=== PATIENT | male | born 1970 | race Caucasian/White ===

== ENCOUNTER 2017-11-19 16:25 | Emergency (ER) | payer BC ==
[~2017-11-19] VITALS: Ht 177.8 cm; Wt 204.1 kg
[2017-11-19 16:25] VITALS: BP_SYST 142
--- NOTE | 2017-11-19 16:25 | NUR ---
BROUGHT BACK TO BED #7 AND TRIAGED, REPORT GIVEN TO MARIE
--- NOTE | 2017-11-19 16:27 | NUR ---
Patient brought in with from Primary Doctor's office for hypertension and possible DVT on right leg. Patient states blood pressure was over 210 and has a bump on the right anterior leg. Patient also complaining of epigastric pain for 5 months. Denies any N/V/D. Patient states he takes a couple zantac and it goes away. Pain is 5/10 dull. No other complaints/injuries per patient or as noted. Will continue to monitor.
--- NOTE | 2017-11-19 17:24 | NUR ---
ER at bedside examining patient.
[2017-11-19 18:13] VITALS: BP_SYST 147
--- NOTE | 2017-11-19 18:13 | NUR ---
Patient given written and verbal discharge instructions and verbalizes understanding. ER MD discussed with patient the results and treatment provided. Patient in stable condition. ID arm band removed. Rx of Prilosec and [place] given. Patient educated on pain management and to follow up with PMD in 2-3 days. Pain Scale 0/10 Opportunity for questions provided and answered. Medication side effect fact sheet provided.
== END 2017-11-19 18:13 | disposition home or self-care (01) ==
LOC: SED 16:25
DX: I10 Essential (primary) hypertension (principal); R10.13 Epigastric pain; Z98.84 Bariatric surgery status
CPT/HCPCS: 93005; 99283

== ENCOUNTER 2020-05-25 07:03 | Emergency (ER) | payer BC, MEDICAID ==
[~2020-05-25] VITALS: Ht 177.8 cm; Wt 206.4 kg
[2020-05-25 07:09] VITALS: BP_SYST 129
[2020-05-25] MEDS ORDERED: KETOROLAC TROMETHAMINE 60 MG/2 ML VIAL IM ONE (08:00)
[2020-05-25 09:40] VITALS: BP_SYST 137
== END 2020-05-25 09:43 | disposition home or self-care (01) ==
LOC: SED 07:03
DX: S00.03XA Contusion of scalp, initial encounter (principal); S80.211A Abrasion, right knee, initial encounter; R03.0 Elevated blood-pressure reading, without diagnosis of hypertension; E11.9 Type 2 diabetes mellitus without complications; W06.XXXA Fall from bed, initial encounter; Y93.89 Activity, other specified; Y92.89 Other specified places as the place of occurrence of the external cause; Y99.8 Other external cause status
CPT/HCPCS: 70250; 73564; 96372; 99284; J1885

== ENCOUNTER 2021-05-24 19:07 | Inpatient (IN) | payer BC, MEDICAID, SELFPAY ==
[~2021-05-24] VITALS: Ht 177.8 cm; Wt 213.6 kg
[2021-05-24 19:35] VITALS: BP_SYST 114
--- NOTE | 2021-05-24 19:35 | NUR ---
Came in ER ambulatory from home accompanied by , PAULA, spontaneously at room air, not in distress noted. With chief complaints of Scrotal pain and swelling for 2 weeks, known with Diabetes on Metformin, Peripheral neuropathy, he fell in the floor in the restaurant yesterday, s/p gastric bypass 2006. Vital signs taken and recorded, [id number]%, O2 at 2L/min via nasal cannula administered.
--- NOTE | 2021-05-24 19:44 | NUR ---
Seen and examined by Dr. Vizcarra, ER Attending
[2021-05-24] MEDS ORDERED: FUROSEMIDE 40 MG/4 ML VIAL IVP ONE (19:45)
[2021-05-24] MEDS ORDERED: PIPERACILLIN/TAZO 4.5 GM in NS 100 ML IV ONE (19:45)
--- NOTE | 2021-05-24 20:00 | NUR ---
# 20 gauge [facility]ath [facility]. Use of asceptic technique. Opsite placed over site. Blood return noted. Blood for lab drawn from site. Flushed with 10 cc of normal saline. No evidence of infiltration noted. Patient tolerated well.
--- NOTE | 2021-05-24 20:10 | NUR ---
chest Xray at bedside done
[2021-05-24] MEDS ORDERED: PIPERACILLIN/TAZOBACTAM 4.5 GM/VIAL (ZOSYN) IV ONE (20:22)
[2021-05-24 20:30] LABS: CALCIUM 7.8 mg/dL (8.4-11.0); CREATININE 1.07 mg/dL (0.55-1.30); POTASSIUM 4.1 mmol/L (3.5-5.1)
[2021-05-24 20:31] LABS: HEMOGLOBIN 7.3 g/dL (14.0-18.0); MEAN CORPUSCULAR HEMOGLOBIN 16 pg (27-31)
[2021-05-24 20:35] LABS: ALBUMIN 3.2 g/dL (3.4-4.8); BASOPHILS # (AUTO) 0.1 K/uL (0.0-0.2); BASOPHILS % (AUTO) 1.2 % (0.0-2.0); EOSINOPHILS # (AUTO) 0.3 K/uL (0.0-0.4); EOSINOPHILS % (AUTO) 3.4 % (0.0-4.0); HEMATOCRIT 26.6 % (36-54); LYMPHOCYTES # (AUTO) 1.5 K/uL (1.0-5.5); LYMPHOCYTES % (AUTO) 17.3 % (20.5-51.5); MEAN CORPUSCULAR HGB CONC 28 % (32-36); MEAN CORPUSCULAR VOLUME 58 fL (79.0-98.0); MONOCYTES % (AUTO) 11.8 % (1.7-9.3); NEUTROPHILS # (AUTO) 5.8 K/uL (1.8-7.7); NEUTROPHILS % (AUTO) 66.3 % (40.0-70.0); PLATELET COUNT (AUTO) 195 K/uL (130-430); RED BLOOD CELL COUNT(AUTO) 4.59 MIL/uL (4.2-6.2); RED CELL DISTRIBUTION WIDTH 23.7 % (9.0-15.0); TOTAL BILIRUBIN 1.1 mg/dL (0.0-1.0); WHITE BLOOD COUNT (AUTO) 8.7 K/uL (4.8-10.8)
--- NOTE | 2021-05-24 21:02 | NUR ---
Patient will be admitted to care of Dr. Gordillo as A CASE OF ANASARCA. Admitted to TELEMETRY unit. Will go to room PENDING. Belongings list completed. Complete and up to date summary report printed. SBAR report to be given at bedside with opportunity for questions.
--- NOTE | 2021-05-24 21:05 | NUR ---
CT scan personnel Kareem contacted, according to him the maximum weight of the patient can accommodate to CT table maximum of 400lbs, apparently the patient weight 440lbs. As per Dr. Gordillo if pt cannot accommodate to Ct scan, can proceed to ULtrasound Abdomen.
[2021-05-24 21:19] LABS: AMYLASE 136 U/L (0-100); LIPASE 165 U/L (73-393)
--- NOTE | 2021-05-24 21:19 | NUR ---
To toilet ambulatory, voided small amount of urine, wasn't able to collect.
--- NOTE | 2021-05-24 21:31 | NUR ---
Patient's code status is FULL CODE, paperwork completed and placed in chart.
[2021-05-24] MEDS ORDERED: GLUXR500 PO (21:33)
--- NOTE | 2021-05-24 21:33 | NUR ---
Medication reconciliation completed with information provided by the patient. Any prior medication reconciliation on file was reviewed and corrected.
--- NOTE | 2021-05-24 23:55 | NUR ---
To bedside commode, voided freely to a clear urine 1200ml noted, sample sent to lab
--- NOTE | 2021-05-25 00:56 | NUR ---
To toilet ambulatory, voided freely as claimed
[2021-05-25 01:24] LABS: CLARITY/URINE CLEAR (CLEAR); COLOR,URINE YELLOW (YELLOW)
[2021-05-25 01:25] LABS: BILIRUBIN,URINE NEGATIVE (NEGATIVE); BLOOD, URINE NEGATIVE (NEGATIVE); GLUCOSE,URINE NEGATIVE (NEGATIVE); KETONES,URINE NEGATIVE (NEGATIVE); LEUKOCYTE ESTERASE ,URINE NEGATIVE (NEGATIVE); NITRITE, URINE NEGATIVE (NEGATIVE); PROTEIN URINE NEGATIVE (NEGATIVE); UROBILINOGEN,URINE 0.2 (0.2-1.0)
--- NOTE | 2021-05-25 02:54 | NUR ---
Awake, not in distress noted
--- NOTE | 2021-05-25 05:13 | NUR ---
Ambulatory to toilet, voided freely as claimed
--- NOTE | 2021-05-25 07:10 | NUR ---
Endorsed to day shift RN in stable condition for continuity of care.
--- NOTE | 2021-05-25 07:41 | NUR ---
REPORT RECEIVED, PT O2 SAT 86-95%, ON 02-3L VIA NC, TOLERATING WELL. PT ADMITS TO USING CPAP AT HOME, BUT NOT USING FOR THE LAST MONTH. IN NAD, RESP EVEN AND UNLABORED, LS-CLEAR RAUL, DIMINISHED AT BASES. DENIES ANY SOB OR CP. SKIN W/D/I, PT MORBIDLY OBESE, DENIES ANY ABD PAIN, N,V,D, AFEBRILE. BEDSIDE COMMODE,URINAL IN ROOM, BUT REFUSES, STATES HE PREFERS TO WALK TO BATHROOM. SAFETY MEASURES IN PLACE. WAITING FOR ADMISSION BED.
--- NOTE | 2021-05-25 08:23 | NUR ---
BREAKFAST TRAY OFFERED, EATING WELL.
[2021-05-25 08:41] LABS: ALBUMIN 2.8 g/dL (3.4-4.8); CALCIUM 7.7 mg/dL (8.4-11.0); CREATININE 0.91 mg/dL (0.55-1.30); POTASSIUM 3.8 mmol/L (3.5-5.1); TOTAL BILIRUBIN 1.4 mg/dL (0.0-1.0)
[2021-05-25 08:42] LABS: RED BLOOD CELL COUNT(AUTO) 4.36 MIL/uL (4.2-6.2); WHITE BLOOD COUNT (AUTO) 8.4 K/uL (4.8-10.8)
[2021-05-25 08:44] LABS: EOSINOPHILS # (AUTO) 0.4 K/uL (0.0-0.4); EOSINOPHILS % (AUTO) 4.8 % (0.0-4.0); HEMATOCRIT 25.2 % (36-54); LYMPHOCYTES # (AUTO) 1.4 K/uL (1.0-5.5); MEAN CORPUSCULAR HEMOGLOBIN 16 pg (27-31); MEAN CORPUSCULAR HGB CONC 28 % (32-36); MEAN CORPUSCULAR VOLUME 58 fL (79.0-98.0); MONOCYTES # (AUTO) 0.7 K/uL (0.0-1.0); NEUTROPHILS # (AUTO) 5.9 K/uL (1.8-7.7); NEUTROPHILS % (AUTO) 70.2 % (40.0-70.0); PLATELET COUNT (AUTO) 195 K/uL (130-430); RED CELL DISTRIBUTION WIDTH 23.5 % (9.0-15.0)
[2021-05-25 08:45] LABS: BASOPHILS # (AUTO) 0.1 K/uL (0.0-0.2)
--- NOTE | 2021-05-25 09:11 | NUR ---
DR NEW CALLED BACK AND I INFORMED HER ABOUT PT'S LAB TESTS HGB 7.0/HCT 25.2, PT ALSO RPEORTS RT RIB AREA PAIN S/P FALL YESTERDAY. REQUESTING PAIN MEDICATION, ORDERS RECEIVED. SHUKRI SANCHEZ MADE AWARE.
--- NOTE | 2021-05-25 10:49 | NUR ---
PT SITTING UP IN BED, IN NAD. RESP EVEN AND UNLABORED, DENIES ANY SOB OR CP. REPORTS RT RIB PAIN S/P FALLING TWO DAYS AGO,. PHARMACY WAS CALLED AND THEY ARE ENTERING ADMISSION ORDER. PT ASSISTED BACK TO BED ,PLACED ON 02-3L VIA NC FOR COMFORT AND SLEEPING. VSS.
--- NOTE | 2021-05-25 11:55 | NUR ---
PT 02 SATS AT 84-86%, PT WITH EYES CLOSED, IN DEEP SLEEP. PT AROUSBALE TO VOICE, INSTRUCTED TO TAKE DEEP BREATHS. O2-SATS INCREASED TO 97% ON 02-3L VIA NC.
--- NOTE | 2021-05-25 13:11 | NUR ---
DR BERTRAND IN ROOM FOR EXAM, NO NEW VERBAL ORDERS RECEIVED.
--- NOTE | 2021-05-25 14:01 | NUR ---
NOTED THAT WHEN PT SLEEPS, HIS O2 SAT DECREASE TO 80'S, CONSTANTLY REMIDING PT TO TAKE DEEP BREATHS. STATES, "PLEASE LET ME SLEEP, IM TIRED". HE REFUSES CPAP, DR ELZA BENSON, ORDER FOR LEAK PATCHER CONSULT, RT CALLED. SHUKRI SANCHEZ NOTIFIED.
--- NOTE | 2021-05-25 14:08 | NUR ---
DR SAN CALLED AND I INFORMD HER PF PT'S LOW 02 SATS 70-90% WHEN SLEEPING. STATES SHE WILLCOME TO SEE PT.
--- NOTE | 2021-05-25 14:34 | NUR ---
RT AT BEDSIDE, APPLIED BIPAP 12/6, RATE 10, 30% TOLERATING WELL.
--- NOTE | 2021-05-25 15:00 | NUR ---
Patient will be admitted to care of . Admitted to MS unit. Will go to room 116B. Belongings list completed. Complete and up to date summary report printed. SBAR report to be given at bedside with opportunity for questions.
--- NOTE | 2021-05-25 15:32 | NUR ---
CONSULTATION PAGED REASON FOR CONSULTATION:SCROTAL PAIN WAS CONSULT CALLED?Y PERSON WHO WAS NOTIFIED:ELIANA ALEXANDER CONSULTING PHYSICIAN:ELIANA ALEXANDER PROFESSOR OF APOLOGETICS SPECIALTY:UROLOGY PROFESSOR OF APOLOGETICS PHONE NUMBER:[phone] REQUESTING PHYSICIAN:GEE DOVE
--- NOTE | 2021-05-25 15:36 | NUR ---
CONSULTATION PAGED REASON FOR CONSULTATION:DESAT WAS CONSULT CALLED?Y PERSON WHO WAS NOTIFIED:JOSE CONSULTING PHYSICIAN: EVENT MARKETING MANAGER SPECIALTY:PULMONARY EVENT MARKETING MANAGER PHONE NUMBER:[phone] REQUESTING PHYSICIAN:GEE DOVE
[2021-05-25 15:39] VITALS: BP_SYST 130
[2021-05-25] MEDS ORDERED: INSULIN LISPRO SLIDING SCALE 100 UNITS/ML VIAL (humaLOG) SUBCUT PRN (15:45)
[2021-05-25] MEDS ORDERED: GLUCOSE (DEXTROSE) ORAL GEL -Adults PO PRN (15:45)
--- NOTE | 2021-05-25 16:11 | NUR ---
CONSULTATION PAGED REASON FOR CONSULTATION:TRANSAMINITIS,ANASARCA WAS CONSULT CALLED?Y PERSON WHO WAS NOTIFIED:CHAPITO CONSULTING PHYSICIAN:FERMIN TROY PETROLEUM REFINERY OPERATOR SPECIALTY:GI PETROLEUM REFINERY OPERATOR PHONE NUMBER:[phone] REQUESTING PHYSICIAN:GEE DOVE
[2021-05-25] MEDS: PIPERACILLIN/TAZO 3.375/DEX-IS 50 ML IV SCH ×2 (19:12→23:56)
[2021-05-25 20:00] VITALS: BP_SYST 117
[2021-05-25] MEDS: GABAPENTIN 100 MG CAPSULE PO SCH (20:26)
[2021-05-25] MEDS: MORPHINE 2 MG/ML INJ. SYRINGE IVP PRN (20:28)
--- NOTE | 2021-05-25 21:42 | NUR ---
OOB, RESTROOM Patient is unable to use urinal for void and unable to use BSC, he insisted on walking to restroom. Ambulated w/FWW and assist. Voided and returned to bed, sitting at bedside w/ legs dangle a few minutes, then returned to side posture.
[2021-05-26 00:40] VITALS: BP_SYST 137
[2021-05-26] MEDS: PIPERACILLIN/TAZO 3.375/DEX-IS 50 ML IV SCH ×3 (05:55→17:31)
[2021-05-26] MEDS: MORPHINE 2 MG/ML INJ. SYRINGE IVP PRN (07:09)
--- NOTE | 2021-05-26 07:40 | NUR ---
OPENING NOTES: RECEIVED REPORT FROM PIN OR CLIP FASTENER NURSE. PATIENT IS AWAKE LAYING DOWN IN BED. TOLERATED OXYGEN ON ROOM AIR WITH NO DISTRESS NOTED. IV LINE PATENT AND INTACT WITH NO INFILTRATION NOTED. PATIENT STABLE AT THIS TIME. SAFETY,FALL, AND ASPIRATION PRECAUTIONS ARE IN PLACE. BED LOCKED IN LOWEST POSITION AND CALL LIGHT IN REACH. WILL CONTINUE TO MONITOR FOR ANY CHANGES.
[2021-05-26 07:54] LABS: BASOPHILS # (AUTO) 0.1 K/uL (0.0-0.2); BASOPHILS % (AUTO) 1.1 % (0.0-2.0); EOSINOPHILS # (AUTO) 0.4 K/uL (0.0-0.4); EOSINOPHILS % (AUTO) 4.2 % (0.0-4.0); HEMATOCRIT 25.8 % (36-54); HEMOGLOBIN 7.1 g/dL (14.0-18.0); LYMPHOCYTES # (AUTO) 1.5 K/uL (1.0-5.5); MEAN CORPUSCULAR HEMOGLOBIN 16 pg (27-31); MEAN CORPUSCULAR HGB CONC 27 % (32-36); MEAN CORPUSCULAR VOLUME 58 fL (79.0-98.0); MONOCYTES # (AUTO) 0.9 K/uL (0.0-1.0); MONOCYTES % (AUTO) 9.5 % (1.7-9.3); NEUTROPHILS # (AUTO) 6.2 K/uL (1.8-7.7); NEUTROPHILS % (AUTO) 68.2 % (40.0-70.0); PLATELET COUNT (AUTO) 220 K/uL (130-430); RED BLOOD CELL COUNT(AUTO) 4.44 MIL/uL (4.2-6.2); RED CELL DISTRIBUTION WIDTH 23.7 % (9.0-15.0)
[2021-05-26 08:00] VITALS: BP_SYST 137
[2021-05-26] MEDS: GABAPENTIN 100 MG CAPSULE PO SCH ×2 (08:37→21:26)
[2021-05-26] MEDS: FUROSEMIDE 40 MG/4 ML VIAL IVP SCH ×2 (08:38→21:27)
[2021-05-26] MEDS: ENOXAPARIN SODIUM 60 MG/0.6 ML SYRINGE SUBCUT SCH ×2 (08:39→21:32)
[2021-05-26 08:48] LABS: CALCIUM 7.8 mg/dL (8.4-11.0); CREATININE 1.07 mg/dL (0.55-1.30); POTASSIUM 3.8 mmol/L (3.5-5.1)
--- NOTE | 2021-05-26 10:44 | NUR ---
CONSULT CARDIOLOGY CHF DR SMITH [phone] DR SMITH IS ROUNDING INFORMED OF CONSULT BY CHARGE NURSE PAULA
[2021-05-26 12:00] VITALS: BP_SYST 134
[2021-05-26 12:06] LABS: HEPATITIS A AB, IgM Negative (Negative); HEPATITIS B CORE AB, IgM Negative (Negative); HEPATITIS B SURFACE AG Negative (Negative)
[2021-05-26 12:24] LABS: TOTAL IRON BIND. CAPACITY 418 ug/dL (250-450)
--- NOTE | 2021-05-26 14:50 | NUR ---
PATIENT IS BLOWING BRIGHT RED BLOOD COMING FROM HIS NOSE. (DR. WILCOX) IS AWARE AND WENT TO CHECK ON PATIENT. WITH ORDER TO JUST CONTINUE MONITOR AND DO AEROSOLIZE OXYGEN ON BIPAP TONIGHT.
[2021-05-26 16:00] VITALS: BP_SYST 136
--- NOTE | 2021-05-26 18:20 | NUR ---
PATIENT HEART RATE IS 132 MANUALLY. CALLED AND SPOKE TO DR. SMITH WITH ORDERS TO PUT PATIENT ON TELE MONITOR.
--- NOTE | 2021-05-26 18:40 | NUR ---
CLOSING NOTES: PATIENT IS AWAKE LAYING DOWN IN BED. TOLERATED OXYGEN ON ROOM AIR WITH NO DISTRESS NOTED. IV LINE PATENT AND INTACT WITH NO INFILTRATION NOTED. PATIENT STABLE AT THIS TIME. SAFETY,FALL, AND ASPIRATION PRECAUTIONS REMAINED IN PLACE. BED LOCKED IN LOWEST POSITION AND CALL LIGHT IN REACH. WILL ENDORSE PATIENT CARE TO ONCOMING CLAIMS ADJUSTOR NURSE.
[2021-05-26] MEDS ORDERED: POTASSIUM CHLORIDE 20 MEQ TAB.PRT.SR PO ONE (19:30)
[2021-05-26] MEDS ORDERED: METOPROLOL TARTRATE 5 MG/5 ML AMPUL IVP ONE (19:30)
[2021-05-26] MEDS ORDERED: AMIODARONE HCL 200 MG TABLET PO ONE (19:30)
--- NOTE | 2021-05-26 19:30 | NUR ---
HIGH ALERT NOTE: Called Dr. Toney back at [phone] identified within the medical roster to verify physician authenticity. (regarding Lopressor IVP one time dose)
[2021-05-26 19:46] VITALS: BP_SYST 118
--- NOTE | 2021-05-26 19:50 | NUR ---
meds: Lopressor IVP, and two PO meds: Amiodorone & K-dur, given as ordered, BP 118/79, HR 200. wctm
--- NOTE | 2021-05-26 19:57 | NUR ---
OOB restroom ambulated to restroom and returned to bed
--- NOTE | 2021-05-26 21:06 | NUR ---
Dr. Mendoza s/w Dr. Mendoza and informed patient would like to transfer to another hospital, [facility]. I asked for DCP transfer order and she asked if casework specialist here, replied no. She said will not give order, no need d/t no casework specialist to work on transfer. She added that she s/w with patient today. Also informed her patient is requesting cough medicine, received orders for Robitussin DM 10ml Q6Hp cough; TORB
[2021-05-26] MEDS ORDERED: guaiFENesin/DEXTROMETHORPHAN 118 ML PO PRN (21:15)
--- NOTE | 2021-05-26 21:42 | NUR ---
meds scheduled meds given
[2021-05-27] MEDS: PIPERACILLIN/TAZO 3.375/DEX-IS 50 ML IV SCH ×5 (00:03→22:16)
[2021-05-27 00:10] VITALS: BP_SYST 120
--- NOTE | 2021-05-27 06:39 | NUR ---
Nutrition Update Werner Scale 16 noted. Pt admitted for Anasarca Diet: [facility] BMI: 63.1 kg/m2 RD to follow per nutrition care standards.
--- NOTE | 2021-05-27 08:00 | NUR ---
OPENING NOTES ALERT AND ORIENTED. ON 2 LITERS OF OXYGEN SUPPORT VIA NASAL CANNULA. DENIES ANY PAIN. REDNESS NOTED AROUND IV SITE BUT PATIENT REFUSED TO CHANGE SITES BECAUSE IV IS STILL WORKING. AMBULATORY, USES WALKER. FALL AND SAFETY CHECKS DONE. CALL LIGHT WITHIN REACH. WILL MONITOR.
[2021-05-27] MEDS ORDERED: guaiFENesin/DEXTROMETHORPHAN 10 ML UDC PO PRN (08:15)
[2021-05-27 08:38] VITALS: BP_SYST 112
[2021-05-27] MEDS: FUROSEMIDE 40 MG/4 ML VIAL IVP SCH (08:58)
[2021-05-27] MEDS: GABAPENTIN 100 MG CAPSULE PO SCH ×2 (08:58→20:42)
[2021-05-27] MEDS: ENOXAPARIN SODIUM 60 MG/0.6 ML SYRINGE SUBCUT SCH (08:59)
[2021-05-27] MEDS ORDERED: METOPROLOL SUCCINATE 50 MG TAB.SR.24H (TOPROL XL) PO ONE (11:00)
[2021-05-27 11:13] LABS: ALBUMIN 3.2 g/dL (3.4-4.8); CALCIUM 7.9 mg/dL (8.4-11.0); CREATININE 1.31 mg/dL (0.55-1.30); POTASSIUM 3.6 mmol/L (3.5-5.1); TOTAL BILIRUBIN 1.5 mg/dL (0.0-1.0)
[2021-05-27] MEDS: CLOTRIMAZOLE 1% TOPICAL CREAM 15 GM TP SCH ×2 (11:23→20:42)
--- NOTE | 2021-05-27 11:34 | NUR ---
Dietitian Recommendations *Recommend: [facility] Cardiac diet. *Recommend: Weight loss and lifestyle change. *Provide education prior to discharge. Please see Nutritional Assessment for details. SEUN MORRIS
[2021-05-27 11:56] LABS: HEMOGLOBIN A1C 6.1 % (4.8-5.6)
[2021-05-27 12:04] VITALS: BP_SYST 133
[2021-05-27] MEDS: SOD FERRIC GLUC COMPLEX/SUC 125 MG in NS 100 ML IV SCH (12:39)
[2021-05-27 12:41] LABS: TOTAL IRON BIND. CAPACITY 471 ug/dL (250-450)
[2021-05-27 16:10] VITALS: BP_SYST 125
[2021-05-27 16:24] LABS: EOSINOPHILS # (AUTO) 0.2 K/uL (0.0-0.4); HEMOGLOBIN 7.5 g/dL (14.0-18.0); MEAN CORPUSCULAR HEMOGLOBIN 16 pg (27-31); MEAN CORPUSCULAR HGB CONC 28 % (32-36)
[2021-05-27 16:31] LABS: BASOPHILS # (AUTO) 0.1 K/uL (0.0-0.2); BASOPHILS % (AUTO) 1.5 % (0.0-2.0); EOSINOPHILS % (AUTO) 2.5 % (0.0-4.0); HEMATOCRIT 27.4 % (36-54); LYMPHOCYTES # (AUTO) 1.5 K/uL (1.0-5.5); LYMPHOCYTES % (AUTO) 16.6 % (20.5-51.5); MEAN CORPUSCULAR VOLUME 58 fL (79.0-98.0); MONOCYTES % (AUTO) 11.2 % (1.7-9.3); NEUTROPHILS # (AUTO) 6.1 K/uL (1.8-7.7); NEUTROPHILS % (AUTO) 68.2 % (40.0-70.0); PLATELET COUNT (AUTO) 284 K/uL (130-430); RED BLOOD CELL COUNT(AUTO) 4.74 MIL/uL (4.2-6.2); RED CELL DISTRIBUTION WIDTH 23.8 % (9.0-15.0)
--- NOTE | 2021-05-27 18:55 | NUR ---
CLOSING NOTES RESTING. NO COMPLAINS. ALL NEEDS MET. WILL ENDORSE TO NIGHT NURSE.
--- NOTE | 2021-05-27 19:40 | NUR ---
OPENING NOTE RECEIVED REPORT FROM DAY RN. PATIENT LAYING IN BED WITH RESPIRATIONS EVEN AND UNLABORED ON RA. PT HAS NC AT BEDSIDE AND STATES HE WILL WEAR IT WHEN HE FEELS SOB. AT BEDSIDE. PT HELPED UP TO SITTING POSITION. THEN UP WITH WALKER TO RESTROOM. PT AMBULATORY WITH STEADY GAIT. PT VOIDED ONLY. PT ALSO USES PERSONAL CANE TO HELP TO STANDING POSITION. EDUCATED PT ON PLAN OF CARE. PT SCROTUM ENLARGED. PT SELF TURNS IN BED. SKIN INTACT. BED IN LOWEST AND LOCKED POSITION. RFA 20G IV INTACT AND PATENT. SALINE LOCKED. FLUSHES WELL. REDNESS NOTED AROUND IV SITE. PT DENIES PAIN. MAY HAVE ALLERGIC RXN TO TAPE. WILL CHANGE OUT DRESSING. NO SWELLING NOTED. CALL LIGHT WITHIN REACH. SAFETY/FALL PRECAUTIONS IN PLACE. WILL CONTINUE TO MONITOR.
[2021-05-27 20:00] VITALS: BP_SYST 94
--- NOTE | 2021-05-27 21:03 | NUR ---
GLUCOMETER CHECK BLOOD GLUCOSE 134. NO INSULIN COVERAGE NEEDED PER SLIDING SCALE. WILL CONTINUE TO MONITOR.
[2021-05-27] MEDS: MORPHINE 2 MG/ML INJ. SYRINGE IVP PRN (22:17)
[2021-05-28] VITALS: BP_SYST 121
--- NOTE | 2021-05-28 00:57 | NUR ---
CONSULTATION PAGED/CALLED Reason for Consultation: MACROCYTIC ANEMIA Person Who was Notified: DOCTOR PUSHPA EUGENE SAW PT Consulting Physician: Finance Attorney Specialty: Ordering Physician: BRENDEN
--- NOTE | 2021-05-28 04:31 | NUR ---
PAIN MEDICATION PT REQUESTS PRN PAIN MEDICATION FOR SCROTUM PAIN. PRN MEDICATION ADMINISTERED PER ORDER.
[2021-05-28] MEDS: MORPHINE 2 MG/ML INJ. SYRINGE IVP PRN (04:45)
[2021-05-28] MEDS: PIPERACILLIN/TAZO 3.375/DEX-IS 50 ML IV SCH ×3 (05:53→17:35)
--- NOTE | 2021-05-28 07:01 | NUR ---
CLOSING NOTE PATIENT AWAKE IN BED WITH RESPIRATIONS EVEN AND UNLABORED ON 2L O2 VIA NC. NO SIGNS OF DISTRESS NOTED. RFA IV PATENT AND INTACT. FLUSHES WELL. PT CURRENTLY DENIES PAIN. BED IN LOWEST AND LOCKED POSITION. CALL LIGHT WITHIN REACH. SAFETY/FALL PRECAUTIONS IN PLACE. WILL ENDORSE TO DAY RN.
[2021-05-28 07:04] LABS: BASOPHILS # (AUTO) 0.1 K/uL (0.0-0.2); BASOPHILS % (AUTO) 1.1 % (0.0-2.0); EOSINOPHILS # (AUTO) 0.5 K/uL (0.0-0.4); EOSINOPHILS % (AUTO) 5.5 % (0.0-4.0); HEMOGLOBIN 7.3 g/dL (14.0-18.0); LYMPHOCYTES # (AUTO) 1.8 K/uL (1.0-5.5); LYMPHOCYTES % (AUTO) 19.2 % (20.5-51.5); MEAN CORPUSCULAR HEMOGLOBIN 16 pg (27-31); MEAN CORPUSCULAR HGB CONC 27 % (32-36); MEAN CORPUSCULAR VOLUME 59 fL (79.0-98.0); MONOCYTES # (AUTO) 0.9 K/uL (0.0-1.0); MONOCYTES % (AUTO) 9.5 % (1.7-9.3); NEUTROPHILS # (AUTO) 6.2 K/uL (1.8-7.7); PLATELET COUNT (AUTO) 288 K/uL (130-430); RED CELL DISTRIBUTION WIDTH 23.8 % (9.0-15.0); WHITE BLOOD COUNT (AUTO) 9.6 K/uL (4.8-10.8)
[2021-05-28 07:29] LABS: ALANINE AMINOTRANSFERASE 100 U/L (12-78); ALBUMIN 3.1 g/dL (3.4-4.8); ASPARTATE AMINOTRANSFERASE 51 U/L (10-37); CALCIUM 7.9 mg/dL (8.4-11.0); CHLORIDE 98 mmol/L (98-107); CREATININE 1.15 mg/dL (0.55-1.30); GLUCOSE 108 mg/dL (70-99); PHOSPHORUS 3.8 mg/dL (2.7-4.5); POTASSIUM 3.5 mmol/L (3.5-5.1); SODIUM SERUM 140 mmol/L (136-145); UREA NITROGEN, BLOOD 17 mg/dL (8-21)
[2021-05-28 07:39] LABS: ANION GAP < 3 (5-15); GFR AFRICAN AMERICAN 86 mL/min (>90)
[2021-05-28 08:01] VITALS: BP_SYST 111
--- NOTE | 2021-05-28 08:02 | NUR ---
OPENING NOTES ALERT AND ORIENTED. NO SHORTNESS OF BREATH ON 2 LITERS OF OXYGEN VIA NASAL CANNULA. PAIN IS CONTROLLED AT THIS TIME. REPORTED THAT HE DID NOT SLEEP WELL BECAUSE THE CPAP WAS UNCOMFORTABLE. WANTS TO BE TRANSFERRED SOON POSSIBLE. EXPLAINED PLAN OF CARE, VERBALIZED UNDERSTANDING. FALL AND SAFETY CHECKS DONE. CALL LIGHT WITHIN REACH. WILL MONITOR.
[2021-05-28 08:15] LABS: NEUTROPHILS % (AUTO) 64.7 % (40.0-70.0)
[2021-05-28] MEDS ORDERED: FUROSEMIDE 40 MG/4 ML VIAL IVP ONE (09:00)
[2021-05-28] MEDS ORDERED: METOPROLOL SUCCINATE 50 MG TAB.SR.24H (TOPROL XL) PO SCH (09:00)
[2021-05-28] MEDS ORDERED: ENOXAPARIN SODIUM 60 MG/0.6 ML SYRINGE SUBCUT SCH (09:00)
--- NOTE | 2021-05-28 09:15 | NUR ---
IV INFILTRATED IV ON RIGHT FOREARM WAS INFILTRATED. WAS ABLE TO RE-INSERT NEW IV ON LEFT FOREARM. LASIX ADMINISTERED.
[2021-05-28] MEDS: GABAPENTIN 100 MG CAPSULE PO SCH (09:31)
[2021-05-28] MEDS: CLOTRIMAZOLE 1% TOPICAL CREAM 15 GM TP SCH (09:31)
[2021-05-28 10:18] VITALS: BP_SYST 111
--- NOTE | 2021-05-28 11:40 | NUR ---
IV INFILTRATED IV WAS INFILTRATED GAIN ON THE LEFT FOREARM. MS. FERNANDA RN WAS ABLE TO RE-INSERT AN IV LINE ON THE LEFT FOREARM. ANTIBIOTIC IV ADMINISTERED.
[2021-05-28 12:40] VITALS: BP_SYST 114
[2021-05-28] MEDS: SOD FERRIC GLUC COMPLEX/SUC 125 MG in NS 100 ML IV SCH (13:16)
--- NOTE | 2021-05-28 15:42 | NUR ---
Spoke w/ patient and his . They want [facility] for transfer. I spoke to [facility]-they are not accepting transfers due to Saturation. I notified the patient and his . I [place] [facility] accommodate the patient's size for CT Scan, his abdominal girth is 74 cm-they can accommodate to 73 cm. I spoke to at [facility], they sent a referral to [facility]-they can only accommodate 350 lbs- the patient weight is 440 lbs. I sent a referral to [facility] and I am waiting for a response.
[2021-05-28 16:57] VITALS: BP_SYST 119
[2021-05-28] MEDS ORDERED: FUROSEMIDE 40 MG/4 ML VIAL IVP SCH (17:00)
--- NOTE | 2021-05-28 17:07 | NUR ---
ROUNDS PATIENT WANTED TO SHOWER. EXPLAINED TO PATIENT THAT HE IS ON CONTINUOUS CARDIAC MONITORING AND THAT HE CANNOT SHOWER AT THIS TIME. PROVIDED WITH TOILETRIES. NURSE AND NATURAL GAS TRADER OFFERED ASSISTANCE BUT PATIENT REFUSED. SAFETY CHECKS DONE.
--- NOTE | 2021-05-28 20:00 | NUR ---
AMA: Patient does not wish to proceed with medical care recommended by Dr. Mendoza. Patient given information related to possible complications, up to and including , which could occur as a result of leaving hospital at this time. Patient verbalizes understanding of risks involved leaving against medical advice. Patient has signed AMA form.
[2021-05-29 09:07] LABS: HEPATITIS A AB, IgM Negative (Negative); HEPATITIS B CORE AB, IgM Negative (Negative); HEPATITIS B SURFACE AG Negative (Negative)
[2021-05-29 10:07] LABS: ANTI NUCLEAR AB WITH REFLEX Negative (Negative)
[2021-05-29] MEDS ORDERED: NEU100 PO (11:17)
[2021-05-29] MEDS ORDERED: DICL50TA9 PO (11:17)
[2021-05-30 00:06] LABS: FOLATE (FOLIC ACID) >20.0 ng/mL (>3.0)
== END 2021-05-28 19:15 | disposition left against medical advice (07) | DRG 727 ==
LOC: SED 19:07 → STU 20:54 → SMU 05-25 12:19 → STU 05-26 19:16
PROVIDERS: ADMIT Family Medicine; ATTEND Family Medicine
PROC: 5A09357 Assistance with Respiratory Ventilation, Less than 24 Consecutive Hours, Continuous Positive Airway Pressure (ICD-10-PCS; principal; 2021-05-28)
DX: N45.2 Orchitis (principal); J96.21 Acute and chronic respiratory failure with hypoxia; K90.9 Intestinal malabsorption, unspecified; Z68.44 Body mass index [BMI] 60.0-69.9, adult; I47.1 Supraventricular tachycardia; D50.9 Iron deficiency anemia, unspecified; E66.01 Morbid (severe) obesity due to excess calories; J44.9 Chronic obstructive pulmonary disease, unspecified; E11.40 Type 2 diabetes mellitus with diabetic neuropathy, unspecified; G47.33 Obstructive sleep apnea (adult) (pediatric); I50.9 Heart failure, unspecified; Z20.822 Contact with and (suspected) exposure to COVID-19; Z53.29 Procedure and treatment not carried out because of patient's decision for other reasons; R74.01 Elevation of levels of liver transaminase levels; K76.0 Fatty (change of) liver, not elsewhere classified; Z98.84 Bariatric surgery status; Z91.19 Patient's noncompliance with other medical treatment and regimen
CPT/HCPCS: 36415; 71045; 76700-TC; 76870-TC; 80048; 80053; 80061; 80074; 81003; 82103; 82140; 82150; 82272; 82607; 82728; 82746; 82962; 83010; 83036; 83540; 83550; 83605; 83690; 83735; 83880; 84100; 85025; 85044; 86038; 86886; 86900; 86901; 87040-TC; 93005; 93306; 93970; 94660; 94760; 96365; 96375; 99291; G0378; J1650; J1940; J2270; J2543; J2916; J3490

== ENCOUNTER 2021-05-28 22:19 | Inpatient (IN) | payer BC, MEDICAID, SELFPAY ==
[~2021-05-28] VITALS: Ht 177.8 cm; Wt 192.0 kg
[2021-05-28 19:30] VITALS: BP_SYST 115
[2021-05-28 22:19] VITALS: BP_SYST 126
[~2021-05-28 22:19] MED LIST: GLUXR500 PO
[2021-05-29] MEDS ORDERED: FUROSEMIDE 40 MG/4 ML VIAL IVP ONE (00:45)
[2021-05-29 01:39] LABS: BILIRUBIN,URINE NEGATIVE (NEGATIVE); BLOOD, URINE NEGATIVE (NEGATIVE); CLARITY/URINE CLEAR (CLEAR); COLOR,URINE YELLOW (YELLOW); GLUCOSE,URINE NEGATIVE (NEGATIVE); KETONES,URINE NEGATIVE (NEGATIVE); LEUKOCYTE ESTERASE ,URINE NEGATIVE (NEGATIVE); NITRITE, URINE NEGATIVE (NEGATIVE); PH,URINE 7.5 (5.0-8.0); PROTEIN URINE NEGATIVE (NEGATIVE)
[2021-05-29 01:41] LABS: ALBUMIN 3.6 g/dL (3.4-4.8); CALCIUM 8.3 mg/dL (8.4-11.0); CREATININE 1.11 mg/dL (0.55-1.30); POTASSIUM 3.7 mmol/L (3.5-5.1); TOTAL BILIRUBIN 1.5 mg/dL (0.0-1.0)
[2021-05-29 01:42] LABS: BASOPHILS # (AUTO) 0.1 K/uL (0.0-0.2); BASOPHILS % (AUTO) 0.9 % (0.0-2.0); EOSINOPHILS # (AUTO) 0.4 K/uL (0.0-0.4); EOSINOPHILS % (AUTO) 3.4 % (0.0-4.0); HEMATOCRIT 29.3 % (36-54); HEMOGLOBIN 7.8 g/dL (14.0-18.0); LYMPHOCYTES # (AUTO) 2.6 K/uL (1.0-5.5); LYMPHOCYTES % (AUTO) 21.6 % (20.5-51.5); MEAN CORPUSCULAR HEMOGLOBIN 16 pg (27-31); MEAN CORPUSCULAR HGB CONC 27 % (32-36); MEAN CORPUSCULAR VOLUME 59 fL (79.0-98.0); MONOCYTES # (AUTO) 0.8 K/uL (0.0-1.0); MONOCYTES % (AUTO) 6.9 % (1.7-9.3); NEUTROPHILS # (AUTO) 8.2 K/uL (1.8-7.7); NEUTROPHILS % (AUTO) 67.2 % (40.0-70.0); PLATELET COUNT (AUTO) 353 K/uL (130-430); RED CELL DISTRIBUTION WIDTH 23.9 % (9.0-15.0); WHITE BLOOD COUNT (AUTO) 12.2 K/uL (4.8-10.8)
[2021-05-29 08:00] VITALS: BP_SYST 92
[2021-05-29 09:43] VITALS: BP_SYST 119
[2021-05-29] MEDS: FUROSEMIDE 20 MG/2 ML VIAL IVP SCH ×3 (09:43→20:56)
[2021-05-29] MEDS ORDERED: DICL50TA9 PO (11:17)
[2021-05-29] MEDS ORDERED: NEU100 PO (11:17)
[2021-05-29] MEDS ORDERED: DEXTROSE 50% JECT 50 ML DISP.SYRIN IVP PRN (11:45)
[2021-05-29 16:17] VITALS: BP_SYST 116
[2021-05-29 19:30] VITALS: BP_SYST 115
[2021-05-29] MEDS ORDERED: guaiFENesin/DEXTROMETHORPHAN 10 ML UDC PO PRN (23:00)
[2021-05-30] VITALS: BP_SYST 110
[2021-05-30] MEDS: guaiFENesin/DEXTROMETHORPHAN 10 ML UDC PO PRN ×2 (00:12→10:17)
[2021-05-30 08:16] VITALS: BP_SYST 131
[2021-05-30] MEDS: POLYETHYLENE GLYCOL 3350, 17 GM/ POWD.PACK PO SCH (08:21)
[2021-05-30] MEDS: FUROSEMIDE 20 MG/2 ML VIAL IVP SCH ×3 (08:21→21:00)
[2021-05-30] MEDS: PIPERACILLIN/TAZO 3.375/DEX-IS 50 ML IV SCH ×2 (08:22→13:37)
[2021-05-30] MEDS: SOD FERRIC GLUC COMPLEX/SUC 125 MG in NS 100 ML IV SCH (09:08)
[2021-05-30] MEDS ORDERED: VANCOMYCIN HCL 1,750 MG in NS 500 ML IV SCH (10:00)
[2021-05-30 12:40] VITALS: BP_SYST 144
[2021-05-30] MEDS: [UNRECOGNIZED DRUG - OTHER] IV SCH (17:05)
[2021-05-30 17:37] VITALS: BP_SYST 128
[2021-05-30 19:30] VITALS: BP_SYST 105
[2021-05-30] MEDS: LINEZOLID 300 ML IV SCH (22:09)
[2021-05-30] MEDS: INSULIN REGULAR, HUMAN 100 UNITS/ML, 10 ML VIAL (humuLIN R) SUBCUT PRN (22:24)
[2021-05-31] MEDS: [UNRECOGNIZED DRUG - OTHER] IV SCH ×5 (00:55→23:45)
[2021-05-31 01:07] VITALS: BP_SYST 121
[2021-05-31 08:00] VITALS: BP_SYST 110
[2021-05-31] MEDS: SOD FERRIC GLUC COMPLEX/SUC 125 MG in NS 100 ML IV SCH (09:02)
[2021-05-31] MEDS: LINEZOLID 300 ML IV SCH ×2 (09:02→22:15)
[2021-05-31] MEDS: FUROSEMIDE 20 MG/2 ML VIAL IVP SCH ×3 (09:06→20:43)
[2021-05-31] MEDS: POLYETHYLENE GLYCOL 3350, 17 GM/ POWD.PACK PO SCH (09:06)
[2021-05-31] MEDS: FLUCONAZOLE 200 MG TABLET (DIFLUCAN) PO SCH (09:06)
[2021-05-31 14:51] VITALS: BP_SYST 108
[2021-05-31] MEDS: MORPHINE 2 MG/ML INJ. SYRINGE IVP PRN ×2 (15:49→20:55)
[2021-05-31 16:12] VITALS: BP_SYST 110
[2021-05-31] MEDS ORDERED: LINEZOLID 300 ML IV ONE (21:28)
[2021-06-01] MEDS: [UNRECOGNIZED DRUG - OTHER] IV SCH (00:24)
[2021-06-01 00:40] VITALS: BP_SYST 95
[2021-06-01] MEDS ORDERED: [UNRECOGNIZED DRUG - OTHER] IV SCH (06:00)
[2021-06-01 08:00] VITALS: BP_SYST 111
[2021-06-01 08:58] LABS: EOSINOPHILS # (AUTO) 0.7 K/uL (0.0-0.4); HEMOGLOBIN 8.5 g/dL (14.0-18.0); MONOCYTES # (AUTO) 0.7 K/uL (0.0-1.0); NEUTROPHILS # (AUTO) 6.5 K/uL (1.8-7.7); NEUTROPHILS % (AUTO) 65.7 % (40.0-70.0); WHITE BLOOD COUNT (AUTO) 9.9 K/uL (4.8-10.8)
[2021-06-01] MEDS: POLYETHYLENE GLYCOL 3350, 17 GM/ POWD.PACK PO SCH (09:00)
[2021-06-01] MEDS: CLOTRIMAZOLE 1% TOPICAL CREAM 15 GM TP SCH ×3 (09:00→22:38)
[2021-06-01] MEDS: LINEZOLID 300 ML IV SCH ×2 (09:37→22:37)
[2021-06-01] MEDS: SOD FERRIC GLUC COMPLEX/SUC 125 MG in NS 100 ML IV SCH (09:37)
[2021-06-01] MEDS: FUROSEMIDE 20 MG/2 ML VIAL IVP SCH ×3 (09:38→22:37)
[2021-06-01] MEDS: FLUCONAZOLE 200 MG TABLET (DIFLUCAN) PO SCH (09:39)
[2021-06-01] MEDS ORDERED: FLUCONAZOLE 100 MG TABLET (DIFLUCAN) ONE (09:39)
[2021-06-01] MEDS: MORPHINE 2 MG/ML INJ. SYRINGE IVP PRN ×2 (09:41→22:58)
[2021-06-01 09:54] LABS: BASOPHILS # (AUTO) 0.1 K/uL (0.0-0.2); BASOPHILS % (AUTO) 1.5 % (0.0-2.0); EOSINOPHILS % (AUTO) 6.9 % (0.0-4.0); HEMATOCRIT 30.2 % (36-54); LYMPHOCYTES # (AUTO) 1.8 K/uL (1.0-5.5); LYMPHOCYTES % (AUTO) 18.5 % (20.5-51.5); MEAN CORPUSCULAR HEMOGLOBIN 17 pg (27-31); MEAN CORPUSCULAR HGB CONC 28 % (32-36); MEAN CORPUSCULAR VOLUME 59 fL (79.0-98.0); MONOCYTES % (AUTO) 7.4 % (1.7-9.3); PLATELET COUNT (AUTO) 438 K/uL (130-430); RED BLOOD CELL COUNT(AUTO) 5.09 MIL/uL (4.2-6.2)
[2021-06-01 10:02] LABS: RED CELL DISTRIBUTION WIDTH 25.9 % (9.0-15.0)
[2021-06-01 10:06] LABS: ALBUMIN 3.5 g/dL (3.4-4.8); CREATININE 1.16 mg/dL (0.55-1.30); TOTAL BILIRUBIN 1.5 mg/dL (0.0-1.0)
[2021-06-01] MEDS: PIPERACILLIN/TAZO 4.5 GM in D5W 100 ML IV SCH ×2 (12:03→18:01)
[2021-06-01 17:06] VITALS: BP_SYST 118
[2021-06-01 20:17] VITALS: BP_SYST 122
[2021-06-01 23:57] VITALS: BP_SYST 108
[2021-06-02] MEDS: PIPERACILLIN/TAZO 4.5 GM in D5W 100 ML IV SCH ×3 (00:24→15:43)
[2021-06-02 08:12] LABS: HEMATOCRIT 29.1 % (36-54); MEAN CORPUSCULAR HEMOGLOBIN 17 pg (27-31); MEAN CORPUSCULAR HGB CONC 28 % (32-36); MEAN CORPUSCULAR VOLUME 61 fL (79.0-98.0); PLATELET COUNT (AUTO) 437 K/uL (130-430); RED BLOOD CELL COUNT(AUTO) 4.81 MIL/uL (4.2-6.2); RED CELL DISTRIBUTION WIDTH 25.6 % (9.0-15.0); WHITE BLOOD COUNT (AUTO) 9.6 K/uL (4.8-10.8)
[2021-06-02 08:30] VITALS: BP_SYST 110
[2021-06-02 08:58] LABS: CALCIUM 8.5 mg/dL (8.4-11.0); CREATININE 1.13 mg/dL (0.55-1.30); POTASSIUM 3.8 mmol/L (3.5-5.1)
[2021-06-02] MEDS: POLYETHYLENE GLYCOL 3350, 17 GM/ POWD.PACK PO SCH (09:22)
[2021-06-02] MEDS: CLOTRIMAZOLE 1% TOPICAL CREAM 15 GM TP SCH ×2 (09:22→22:21)
[2021-06-02] MEDS: SOD FERRIC GLUC COMPLEX/SUC 125 MG in NS 100 ML IV SCH (09:23)
[2021-06-02] MEDS: FUROSEMIDE 20 MG/2 ML VIAL IVP SCH ×3 (09:24→22:21)
[2021-06-02] MEDS: MORPHINE 2 MG/ML INJ. SYRINGE IVP PRN (09:59)
[2021-06-02] MEDS ORDERED: LINE600T12 PO (11:23)
[2021-06-02] MEDS ORDERED: NYST15PO2 TP (11:23)
[2021-06-02] MEDS ORDERED: LEVO500T89 PO (11:23)
[2021-06-02] MEDS ORDERED: FLUC200T PO ×2 (11:26→12:46)
[2021-06-02] MEDS: LINEZOLID 300 ML IV SCH ×2 (11:40→22:21)
[2021-06-02 12:08] LABS: ERYTHROCYTE SEDIMENTATION RATE 7 MM/HR (0-15)
[2021-06-02 14:01] LABS: LYMPHOCYTES % (MANUAL) 17 % (20-46)
[2021-06-02 14:02] LABS: BASOPHILS % (MANUAL) 0 % (0-2); EOSINOPHILS % (MANUAL) 10 % (0-7); MONOCYTES % (MANUAL) 12 % (0-11)
[2021-06-02] MEDS: FLUCONAZOLE 200 MG TABLET (DIFLUCAN) PO SCH (15:43)
[2021-06-03 00:30] VITALS: BP_SYST 126
[2021-06-03] MEDS: PIPERACILLIN/TAZO 4.5 GM in D5W 100 ML IV SCH ×4 (00:53→19:38)
[2021-06-03 01:07] VITALS: BP_SYST 110
[2021-06-03] MEDS: MORPHINE 2 MG/ML INJ. SYRINGE IVP PRN ×3 (01:07→14:53)
[2021-06-03 08:44] VITALS: BP_SYST 123
[2021-06-03] MEDS: SOD FERRIC GLUC COMPLEX/SUC 125 MG in NS 100 ML IV SCH (10:32)
[2021-06-03] MEDS: POLYETHYLENE GLYCOL 3350, 17 GM/ POWD.PACK PO SCH (10:35)
[2021-06-03] MEDS: FUROSEMIDE 20 MG/2 ML VIAL IVP SCH ×3 (10:40→20:58)
[2021-06-03] MEDS: CLOTRIMAZOLE 1% TOPICAL CREAM 15 GM TP SCH ×2 (10:41→20:58)
[2021-06-03] MEDS: LINEZOLID 300 ML IV SCH ×2 (11:55→20:57)
[2021-06-03] MEDS: FLUCONAZOLE 200 MG TABLET (DIFLUCAN) PO SCH (13:22)
[2021-06-03 13:30] VITALS: BP_SYST 110
[2021-06-03 20:52] VITALS: BP_SYST 110
[2021-06-04] MEDS: PIPERACILLIN/TAZO 4.5 GM in D5W 100 ML IV SCH ×4 (00:33→18:01)
[2021-06-04 08:26] VITALS: BP_SYST 112
[2021-06-04] MEDS: SOD FERRIC GLUC COMPLEX/SUC 125 MG in NS 100 ML IV SCH (10:20)
[2021-06-04] MEDS: POLYETHYLENE GLYCOL 3350, 17 GM/ POWD.PACK PO SCH (10:20)
[2021-06-04] MEDS: FLUCONAZOLE 200 MG TABLET (DIFLUCAN) PO SCH (10:21)
[2021-06-04] MEDS: LINEZOLID 300 ML IV SCH ×2 (10:22→20:26)
[2021-06-04] MEDS: CLOTRIMAZOLE 1% TOPICAL CREAM 15 GM TP SCH ×2 (10:22→20:27)
[2021-06-04] MEDS: FUROSEMIDE 20 MG/2 ML VIAL IVP SCH ×3 (10:22→20:26)
[2021-06-04 12:38] VITALS: BP_SYST 112
[2021-06-04 16:39] VITALS: BP_SYST 130
[2021-06-04] MEDS ORDERED: BISACODYL 5 MG TABLET.DR (DULCOLAX) PO ONE (17:00)
[2021-06-04] MEDS ORDERED: GOLYTELY / COLYTE SOLUTION 4 LITERS PO ONE (18:00)
[2021-06-04 20:15] VITALS: BP_SYST 148
[2021-06-04 20:22] VITALS: BP_SYST 114
[2021-06-04] MEDS: MORPHINE 2 MG/ML INJ. SYRINGE IVP PRN (22:46)
[2021-06-04] MEDS ORDERED: MORPHINE 2 MG/ML INJ. SYRINGE ONE (22:49)
[2021-06-05] MEDS: PIPERACILLIN/TAZO 4.5 GM in D5W 100 ML IV SCH ×4 (00:23→17:08)
[2021-06-05 00:25] VITALS: BP_SYST 111
[2021-06-05] MEDS: MORPHINE 2 MG/ML INJ. SYRINGE IVP PRN ×2 (04:01→13:29)
[2021-06-05] MEDS ORDERED: MORPHINE 2 MG/ML INJ. SYRINGE ONE (04:03)
[2021-06-05] MEDS ORDERED: MEPERIDINE 100 MG INJ. 100 MG/ML VIAL ONE (07:52)
[2021-06-05] MEDS ORDERED: MIDAZOLAM HCL 5 MG/5 ML VIAL ONE (07:53)
[2021-06-05 08:00] VITALS: BP_SYST 124
[2021-06-05] MEDS: MIDAZOLAM HCL 5 MG/5 ML VIAL ONE ×3 (08:31→08:48)
[2021-06-05] MEDS: POLYETHYLENE GLYCOL 3350, 17 GM/ POWD.PACK PO SCH (09:00)
[2021-06-05] MEDS: LINEZOLID 300 ML IV SCH ×2 (09:44→22:08)
[2021-06-05] MEDS: FUROSEMIDE 20 MG/2 ML VIAL IVP SCH ×3 (10:08→22:09)
[2021-06-05] MEDS: CLOTRIMAZOLE 1% TOPICAL CREAM 15 GM TP SCH ×2 (10:08→22:10)
[2021-06-05] MEDS: FLUCONAZOLE 200 MG TABLET (DIFLUCAN) PO SCH (10:08)
[2021-06-05] MEDS: SOD FERRIC GLUC COMPLEX/SUC 125 MG in NS 100 ML IV SCH (11:00)
[2021-06-05] MEDS: INSULIN REGULAR, HUMAN 100 UNITS/ML, 10 ML VIAL (humuLIN R) SUBCUT PRN (11:19)
[2021-06-05 12:00] VITALS: BP_SYST 120
[2021-06-05 16:00] VITALS: BP_SYST 117
[2021-06-05 19:00] VITALS: BP_SYST 117
[2021-06-06] MEDS: PIPERACILLIN/TAZO 4.5 GM in D5W 100 ML IV SCH ×4 (01:12→18:13)
[2021-06-06 04:50] VITALS: BP_SYST 121
[2021-06-06] MEDS: MORPHINE 2 MG/ML INJ. SYRINGE IVP PRN ×2 (04:58→13:49)
[2021-06-06 07:24] LABS: ALBUMIN 3.2 g/dL (3.4-4.8); CREATININE 1.11 mg/dL (0.55-1.30); TOTAL BILIRUBIN 0.7 mg/dL (0.0-1.0)
[2021-06-06 08:00] VITALS: BP_SYST 102
[2021-06-06] MEDS: INSULIN REGULAR, HUMAN 100 UNITS/ML, 10 ML VIAL (humuLIN R) SUBCUT PRN (08:04)
[2021-06-06 08:20] LABS: HEMATOCRIT 30.6 % (36-54); HEMOGLOBIN 8.4 g/dL (14.0-18.0); MEAN CORPUSCULAR HEMOGLOBIN 18 pg (27-31); MEAN CORPUSCULAR HGB CONC 28 % (32-36); MEAN CORPUSCULAR VOLUME 64 fL (79.0-98.0); PLATELET COUNT (AUTO) 412 K/uL (130-430); RED BLOOD CELL COUNT(AUTO) 4.79 MIL/uL (4.2-6.2); RED CELL DISTRIBUTION WIDTH 28.5 % (9.0-15.0); WHITE BLOOD COUNT (AUTO) 6.9 K/uL (4.8-10.8)
[2021-06-06] MEDS: POLYETHYLENE GLYCOL 3350, 17 GM/ POWD.PACK PO SCH ×2 (09:00→10:58)
[2021-06-06] MEDS: CLOTRIMAZOLE 1% TOPICAL CREAM 15 GM TP SCH ×2 (10:01→22:10)
[2021-06-06] MEDS: FUROSEMIDE 20 MG/2 ML VIAL IVP SCH ×3 (10:02→22:10)
[2021-06-06] MEDS: SOD FERRIC GLUC COMPLEX/SUC 125 MG in NS 100 ML IV SCH (10:03)
[2021-06-06] MEDS: FLUCONAZOLE 200 MG TABLET (DIFLUCAN) PO SCH (10:31)
[2021-06-06] MEDS: LINEZOLID 300 ML IV SCH (10:31)
[2021-06-06] MEDS ORDERED: PANTOPRAZOLE SODIUM 40 MG TAB PO ONE (11:00)
[2021-06-06 12:35] VITALS: BP_SYST 106
[2021-06-06 13:04] LABS: BASOPHILS % (MANUAL) 0 % (0-2); EOSINOPHILS % (MANUAL) 6 % (0-7); LYMPHOCYTES % (MANUAL) 21 % (20-46); MONOCYTES % (MANUAL) 5 % (0-11)
[2021-06-06 16:39] VITALS: BP_SYST 112
[2021-06-06 19:00] VITALS: BP_SYST 115
[2021-06-06 20:00] VITALS: BP_SYST 115
[2021-06-06] MEDS: PANTOPRAZOLE SODIUM 40 MG TAB PO SCH (22:05)
[2021-06-07] MEDS ORDERED: PIPERACILLIN/TAZOBACTAM 4.5 GM/VIAL (ZOSYN) IV ONE (00:16)
[2021-06-07] MEDS: PIPERACILLIN/TAZO 4.5 GM in D5W 100 ML IV SCH ×5 (00:54→23:57)
[2021-06-07 01:22] VITALS: BP_SYST 122
[2021-06-07] MEDS: MORPHINE 2 MG/ML INJ. SYRINGE IVP PRN (02:01)
[2021-06-07 08:00] VITALS: BP_SYST 121
[2021-06-07] MEDS: POLYETHYLENE GLYCOL 3350, 17 GM/ POWD.PACK PO SCH (09:00)
[2021-06-07] MEDS: FLUCONAZOLE 200 MG TABLET (DIFLUCAN) PO SCH (10:23)
[2021-06-07] MEDS: PANTOPRAZOLE SODIUM 40 MG TAB PO SCH ×2 (10:23→21:10)
[2021-06-07] MEDS: CLOTRIMAZOLE 1% TOPICAL CREAM 15 GM TP SCH ×2 (10:24→21:11)
[2021-06-07] MEDS: FUROSEMIDE 20 MG/2 ML VIAL IVP SCH ×3 (10:24→21:10)
[2021-06-07 12:40] VITALS: BP_SYST 105
[2021-06-07 16:00] VITALS: BP_SYST 93
[2021-06-07 19:00] VITALS: BP_SYST 143
[2021-06-07 20:00] VITALS: BP_SYST 143
[2021-06-07] MEDS: INSULIN REGULAR, HUMAN 100 UNITS/ML, 10 ML VIAL (humuLIN R) SUBCUT PRN (21:14)
[2021-06-08] VITALS: BP_SYST 134
[2021-06-08] MEDS: PIPERACILLIN/TAZO 4.5 GM in D5W 100 ML IV SCH ×3 (05:12→17:35)
[2021-06-08] MEDS: MORPHINE 2 MG/ML INJ. SYRINGE IVP PRN (05:24)
[2021-06-08 08:00] VITALS: BP_SYST 142
[2021-06-08] MEDS: POLYETHYLENE GLYCOL 3350, 17 GM/ POWD.PACK PO SCH (09:01)
[2021-06-08] MEDS: FLUCONAZOLE 200 MG TABLET (DIFLUCAN) PO SCH (09:02)
[2021-06-08] MEDS: CLOTRIMAZOLE 1% TOPICAL CREAM 15 GM TP SCH ×2 (09:02→21:11)
[2021-06-08] MEDS: PANTOPRAZOLE SODIUM 40 MG TAB PO SCH ×2 (09:02→21:10)
[2021-06-08] MEDS: FUROSEMIDE 20 MG/2 ML VIAL IVP SCH ×3 (09:02→21:10)
[2021-06-08 14:36] VITALS: BP_SYST 118
[2021-06-08 18:07] VITALS: BP_SYST 125
[2021-06-08 19:35] VITALS: BP_SYST 142
[2021-06-09 00:20] VITALS: BP_SYST 116
[2021-06-09] MEDS: PIPERACILLIN/TAZO 4.5 GM in D5W 100 ML IV SCH ×5 (00:27→23:33)
[2021-06-09 08:00] VITALS: BP_SYST 116
[2021-06-09] MEDS: FLUCONAZOLE 200 MG TABLET (DIFLUCAN) PO SCH (08:18)
[2021-06-09] MEDS: PANTOPRAZOLE SODIUM 40 MG TAB PO SCH ×2 (08:18→21:06)
[2021-06-09] MEDS: POLYETHYLENE GLYCOL 3350, 17 GM/ POWD.PACK PO SCH (08:18)
[2021-06-09] MEDS: FUROSEMIDE 20 MG/2 ML VIAL IVP SCH ×3 (08:18→21:07)
[2021-06-09] MEDS: CLOTRIMAZOLE 1% TOPICAL CREAM 15 GM TP SCH ×2 (08:18→21:07)
[2021-06-09 12:00] VITALS: BP_SYST 118
[2021-06-09] MEDS ORDERED: ONDANSETRON HCL 4 MG/2 ML VIAL IVP PRN (13:30)
[2021-06-09 16:00] VITALS: BP_SYST 118
[2021-06-09] MEDS: SUCRALFATE 1 GM/10 ML UDC GT SCH (16:53)
[2021-06-09 19:54] VITALS: BP_SYST 156
[2021-06-10] VITALS: BP_SYST 138
[2021-06-10] MEDS: PIPERACILLIN/TAZO 4.5 GM in D5W 100 ML IV SCH ×3 (05:45→17:03)
[2021-06-10] MEDS: SUCRALFATE 1 GM/10 ML UDC GT SCH ×2 (05:53→16:53)
[2021-06-10 07:42] LABS: ALBUMIN 3.4 g/dL (3.4-4.8); CALCIUM 8.7 mg/dL (8.4-11.0); CREATININE 1.17 mg/dL (0.55-1.30); POTASSIUM 4.1 mmol/L (3.5-5.1); TOTAL BILIRUBIN 0.8 mg/dL (0.0-1.0)
[2021-06-10 07:54] LABS: HEMATOCRIT 34.3 % (36-54); HEMOGLOBIN 9.6 g/dL (14.0-18.0); MEAN CORPUSCULAR HEMOGLOBIN 19 pg (27-31); MEAN CORPUSCULAR HGB CONC 28 % (32-36); MEAN CORPUSCULAR VOLUME 67 fL (79.0-98.0); PLATELET COUNT (AUTO) 334 K/uL (130-430); WHITE BLOOD COUNT (AUTO) 8.4 K/uL (4.8-10.8)
[2021-06-10 08:17] VITALS: BP_SYST 115
[2021-06-10] MEDS: POLYETHYLENE GLYCOL 3350, 17 GM/ POWD.PACK PO SCH (09:15)
[2021-06-10] MEDS: FLUCONAZOLE 200 MG TABLET (DIFLUCAN) PO SCH (09:15)
[2021-06-10] MEDS: FUROSEMIDE 20 MG/2 ML VIAL IVP SCH ×3 (09:15→22:24)
[2021-06-10] MEDS: PANTOPRAZOLE SODIUM 40 MG TAB PO SCH ×2 (09:15→22:24)
[2021-06-10] MEDS: CLOTRIMAZOLE 1% TOPICAL CREAM 15 GM TP SCH ×2 (09:23→22:25)
[2021-06-10 11:24] LABS: BAND % (MANUAL) 2 % (0-6); BASOPHILS % (MANUAL) 0 % (0-2); EOSINOPHILS % (MANUAL) 2 % (0-7); LYMPHOCYTES % (MANUAL) 24 % (20-46); MONOCYTES % (MANUAL) 7 % (0-11)
[2021-06-10 16:08] VITALS: BP_SYST 118
[2021-06-10 20:00] VITALS: BP_SYST 125
[2021-06-11] VITALS: BP_SYST 131
[2021-06-11] MEDS: PIPERACILLIN/TAZO 4.5 GM in D5W 100 ML IV SCH ×3 (00:02→11:23)
[2021-06-11] MEDS: SUCRALFATE 1 GM/10 ML UDC GT SCH (06:18)
[2021-06-11 07:50] VITALS: BP_SYST 126
[2021-06-11] MEDS: FLUCONAZOLE 200 MG TABLET (DIFLUCAN) PO SCH (09:18)
[2021-06-11] MEDS: POLYETHYLENE GLYCOL 3350, 17 GM/ POWD.PACK PO SCH (09:19)
[2021-06-11] MEDS: FUROSEMIDE 20 MG/2 ML VIAL IVP SCH (09:19)
[2021-06-11] MEDS: PANTOPRAZOLE SODIUM 40 MG TAB PO SCH (09:19)
[2021-06-11] MEDS: CLOTRIMAZOLE 1% TOPICAL CREAM 15 GM TP SCH (09:20)
[2021-06-11] MEDS ORDERED: SUCR1TAB78 PO (11:21)
[2021-06-11] MEDS ORDERED: PRO40 PO (11:21)
[2021-06-11 12:45] VITALS: BP_SYST 121
[2021-06-11 14:48] VITALS: BP_SYST 136
[2021-06-11] MEDS ORDERED: LEVO750T45 PO (15:05)
[2021-06-11] MEDS ORDERED: CLIN300C12 PO (15:05)
[2021-06-11] MEDS ORDERED: DIF100 PO (15:07)
[2021-06-11] MEDS ORDERED: TRAM100T34 PO (15:10)
== END 2021-06-11 15:30 | disposition home or self-care (01) | DRG 728 ==
LOC: SED 22:19 → SMU 05-29 04:26 → UNDODISIN 06-03 22:35 → SMU 06-04 00:13
PROVIDERS: ADMIT Internal Medicine Hospice and Palliative Medicine; ATTEND Internal Medicine Hospice and Palliative Medicine
PROC: 0DBN8ZZ Excision of Sigmoid Colon, Via Natural or Artificial Opening Endoscopic (ICD-10-PCS; 2021-06-05)
PROC: 0DB68ZX Excision of Stomach, Via Natural or Artificial Opening Endoscopic, Diagnostic (ICD-10-PCS; 2021-06-05)
PROC: 0DBA8ZX Excision of Jejunum, Via Natural or Artificial Opening Endoscopic, Diagnostic (ICD-10-PCS; 2021-06-05)
PROC: 0DBM8ZZ Excision of Descending Colon, Via Natural or Artificial Opening Endoscopic (ICD-10-PCS; principal; 2021-06-05 08:30)
PROC: 0DBL8ZZ Excision of Transverse Colon, Via Natural or Artificial Opening Endoscopic (ICD-10-PCS; 2021-06-05 08:30)
DX: N49.2 Inflammatory disorders of scrotum (principal); E87.1 Hypo-osmolality and hyponatremia; Z68.44 Body mass index [BMI] 60.0-69.9, adult; I10 Essential (primary) hypertension; E66.01 Morbid (severe) obesity due to excess calories; D50.9 Iron deficiency anemia, unspecified; E11.40 Type 2 diabetes mellitus with diabetic neuropathy, unspecified; K44.9 Diaphragmatic hernia without obstruction or gangrene; K28.9 Gastrojejunal ulcer, unspecified as acute or chronic, without hemorrhage or perforation; K63.5 Polyp of colon; K64.8 Other hemorrhoids; Z20.822 Contact with and (suspected) exposure to COVID-19; R74.01 Elevation of levels of liver transaminase levels; D47.3 Essential (hemorrhagic) thrombocythemia; R16.2 Hepatomegaly with splenomegaly, not elsewhere classified; K29.70 Gastritis, unspecified, without bleeding; K57.30 Diverticulosis of large intestine without perforation or abscess without bleeding; K25.9 Gastric ulcer, unspecified as acute or chronic, without hemorrhage or perforation; R94.5 Abnormal results of liver function studies; B35.3 Tinea pedis; Z98.84 Bariatric surgery status
CPT/HCPCS: 36415; 43239; 45385; 70450-TC; 76700-TC; 76870-TC; 80048; 80053; 81003; 82962; 83690; 83880; 85007; 85025; 85027; 85651-TC; 86140; 87040-TC; 87081; 88305; 88312; 88313; 93923; 96374; 99285; J1815; J1940; J2020; J2175; J2250; J2270; J2405; J2543; J2916; J3370; J7040; J7060

== ENCOUNTER 2022-04-04 21:32 | Inpatient (IN) | payer BC, MEDICAID ==
[~2022-04-04] VITALS: Ht 177.8 cm; Wt 187.3 kg
[~2022-04-04 21:32] MED LIST changes: +CLIN-142 PO; +DIF100 PO; +LEVO750T45 PO; +NEU100 PO; +NYST15PO2 TP; +PRO40 PO; +SUCR1TAB78 PO; +TRAM100T34 PO
--- NOTE | 2022-04-04 22:01 | NUR ---
pt to ER w/ c/o redness and swelling to bilateral feet. Pt does have mild swelling with severe redness to feet. Pedal pulse palpatable bilaterally. Pt states "my feet feel numb, like I am walking on balloons". Pt states he does take Gabapentin for nerve pain in his feet. Pt also states he has 7/10 generalized abdominal pain as well as abdominal distension. Pt denies N/V/D. Pt denies fevers. Pt on NC @ 3L at baseline. Ambulates independently with assistance of cane. Pt speaks in complete sentences. Respirations even and unlabored.
[2022-04-04 22:04] VITALS: BP_SYST 103
[2022-04-04 23:07] LABS: BASOPHILS # (AUTO) 0.1 K/uL (0.0-0.2); EOSINOPHILS # (AUTO) 0.1 K/uL (0.0-0.4); EOSINOPHILS % (AUTO) 1.1 % (0.0-4.0); HEMATOCRIT 46.2 % (36-54); HEMOGLOBIN 15.2 g/dL (14.0-18.0); LYMPHOCYTES # (AUTO) 1.4 K/uL (1.0-5.5); LYMPHOCYTES % (AUTO) 19.9 % (20.5-51.5); MEAN CORPUSCULAR HEMOGLOBIN 29 pg (27-31); MEAN CORPUSCULAR HGB CONC 33 % (32-36); MEAN CORPUSCULAR VOLUME 89 fL (79.0-98.0); MONOCYTES # (AUTO) 0.6 K/uL (0.0-1.0); MONOCYTES % (AUTO) 8.1 % (1.7-9.3); NEUTROPHILS # (AUTO) 4.9 K/uL (1.8-7.7); NEUTROPHILS % (AUTO) 68.9 % (40.0-70.0); PLATELET COUNT (AUTO) 165 K/uL (130-430); RED BLOOD CELL COUNT(AUTO) 5.17 MIL/uL (4.2-6.2); RED CELL DISTRIBUTION WIDTH 16.4 % (9.0-15.0); WHITE BLOOD COUNT (AUTO) 7.1 K/uL (4.8-10.8)
[2022-04-04 23:18] LABS: ANION GAP 1 (5-15); CALCIUM 8.8 mg/dL (8.4-11.0); CHLORIDE 98 mmol/L (98-107); CREATININE 1.34 mg/dL (0.55-1.30); GLUCOSE 99 mg/dL (70-99); POTASSIUM 4.7 mmol/L (3.5-5.1); SODIUM SERUM 139 mmol/L (136-145); UREA NITROGEN, BLOOD 17 mg/dL (8-21)
[2022-04-04 23:29] LABS: ALANINE AMINOTRANSFERASE 26 U/L (12-78); ALBUMIN 3.6 g/dL (3.4-4.8); ASPARTATE AMINOTRANSFERASE 33 U/L (10-37); LIPASE 156 U/L (73-393); TOTAL BILIRUBIN 0.8 mg/dL (0.0-1.0)
[2022-04-04 23:33] LABS: GFR AFRICAN AMERICAN 71 mL/min (>90)
--- NOTE | 2022-04-05 01:35 | NUR ---
Placed in room 07 . Placed on egg smeller, blood pressure machine and pulse oximeter. To gown for exam. Side rails up. Report given to TIFFANY ZHU
--- NOTE | 2022-04-05 01:51 | NUR ---
RADHA, RN PT BIB AMB WITH CHARGE NURSE. AT BEDSIDE. C/O LOWER ABD REDNESS NAD SKIN "GETTING HARD", BILAT FEET PAIN AND SCRTOTOL SWELLING. PT OBESE. O2 2-3L/ MIN, "FOR HEART CONDITION"
[2022-04-05] MEDS ORDERED: PIPERACILLIN/TAZO 3.375 GM in NS 50 ML IV ONE (02:15)
[2022-04-05] MEDS ORDERED: VANCOMYCIN HCL 1,000 MG in NS 250 ML IV ONE (02:15)
[2022-04-05] MEDS ORDERED: VANCOMYCIN HCL 500 MG in NS 100 ML IV ONE (02:15)
[2022-04-05] MEDS ORDERED: LIP20 PO (03:05)
[2022-04-05] MEDS ORDERED: POTA-197 PO (03:05)
[2022-04-05] MEDS ORDERED: POTA20PA30 PO (03:05)
[2022-04-05] MEDS ORDERED: DAPA10TA PO (03:06)
[2022-04-05] MEDS ORDERED: FURO-149 PO (03:07)
[2022-04-05] MEDS ORDERED: LOSA50TA28 PO (03:09)
[2022-04-05] MEDS ORDERED: CARV3.1246 PO (03:09)
[2022-04-05] MEDS ORDERED: SEMA0.25 SQ (03:11)
[2022-04-05] MEDS ORDERED: AMIO200T66 PO (03:11)
[2022-04-05] MEDS ORDERED: AMOX500C2 PO (03:11)
[2022-04-05] MEDS ORDERED: VANCOMYCIN HCL 1000 MG/VIAL IV ONE (03:20)
[2022-04-05] MEDS ORDERED: PIPERACILLIN/TAZOBACTAM 3.375 GM/VIAL (ZOSYN) IV ONE (03:21)
--- NOTE | 2022-04-05 03:32 | NUR ---
COVID NASAL SWAB COLLECTED AND SENT
--- NOTE | 2022-04-05 04:09 | NUR ---
Admit bed requested Patient will be admitted to care of [DAVID]. Admitted to [TELE] unit. Diagnosis [CHF POSIBLE CELLULITIS] Inpatient (Yes or No) [YES] Observation (Yes or No) [NO] Orientation concerns or request close to nursing station (Yes or No) [NO] Covid Status [UNKNOWN] On vent or bipap [NO] Isolation requirements [NO] Needs a sitter [NO] From Home (Yes or if No enter name of facility) [YES] Requires Dialysis (Yes or No) [NO] Med Rec Completed (Yes of No) [YES]
[2022-04-05 04:47] LABS: FREE T4 (FREE THYROXINE) 1.1 ng/dl (0.8-1.5); THYROID STIMULATING HORMONE 1.25 uIu/mL (0.36-3.74)
[2022-04-05] MEDS ORDERED: VANCOMYCIN HCL 500 MG/VIAL IV ONE (05:25)
[2022-04-05] MEDS ORDERED: HYDROcodone/ACETAMIN 10-325 MG TAB PO ONE (07:45)
[2022-04-05 08:01] VITALS: BP_SYST 112
--- NOTE | 2022-04-05 08:06 | NUR ---
Patient will be admitted to care of dr camarena. Admitted to tele unit. Will go to room 107b. Belongings list completed. Complete and up to date summary report printed. SBAR report to be given at bedside with opportunity for questions.
[2022-04-05 08:09] VITALS: BP_SYST 112
[2022-04-05] MEDS ORDERED: INSULIN REGULAR, HUMAN 100 UNITS/ML, 10 ML VIAL (humuLIN R) SUBCUT PRN (08:45)
--- NOTE | 2022-04-05 08:45 | NUR ---
pt given lasix ivp, educated on the effects and side effects of lasix including increase risk of fall. pt verbalzied understanding.
--- NOTE | 2022-04-05 08:45 | NUR ---
CONSULTATION PAGED REASON FOR CONSULTATION:CHF, EDEMA WAS CONSULT CALLED?Y -PERSON WHO WAS NOTIFIED:SEAN CONSULTING PHYSICIAN:JUANA NICHOLAS ELECTRICIAN JOURNEYMAN WIREMAN SPECIALTY:CARDIO ELECTRICIAN JOURNEYMAN WIREMAN PHONE NUMBER:[phone] REQUESTING PHYSICIAN: ADELA MAXWELL
[2022-04-05] MEDS ORDERED: FUROSEMIDE 40 MG/4 ML VIAL IVP SCH (09:00)
[2022-04-05] MEDS: FUROSEMIDE 40 MG/4 ML VIAL IVP SCH (09:00)
[2022-04-05] MEDS ORDERED: GABAPENTIN 100 MG CAPSULE PO SCH (09:00)
[2022-04-05] MEDS ORDERED: D5W 1,000 ML IV PRN (09:00)
[2022-04-05] MEDS ORDERED: DEXTROSE 50%-WATER 50 ML DISP.SYRIN IVP PRN (09:00)
[2022-04-05] MEDS ORDERED: FUROSEMIDE 40 MG TABLET PO SCH (09:00)
[2022-04-05] MEDS ORDERED: GLUCOSE (DEXTROSE) ORAL GEL -Adults PO PRN (09:00)
[2022-04-05] MEDS: ATORVASTATIN 20 MG TABLET PO SCH (09:09)
[2022-04-05] MEDS: PANTOPRAZOLE SODIUM 40 MG TAB PO SCH ×2 (09:10→23:11)
[2022-04-05] MEDS: LOSARTAN POTASSIUM 50 MG TABLET (COZAAR) PO SCH (09:10)
[2022-04-05] MEDS: POTASSIUM CHLORIDE 20 MEQ TAB.PRT.SR PO SCH (09:10)
[2022-04-05] MEDS: CARVEDILOL 3.125 MG TABLET (COREG) PO SCH ×2 (09:11→23:10)
[2022-04-05] MEDS: AMIODARONE HCL 200 MG TABLET PO SCH (09:11)
[2022-04-05] MEDS ORDERED: ENOXAPARIN SODIUM 30 MG/0.3 ML SYRINGE SUBCUT ONE (11:00)
[2022-04-05 11:25] VITALS: BP_SYST 163
[2022-04-05] MEDS ORDERED: PIPERACILLIN/TAZO 3.375 GM in NS 50 ML IV SCH (12:00)
[2022-04-05] MEDS ORDERED: NALOXONE HCL 0.4 MG/ML AMP (NARCAN) IVP PRN (13:15)
[2022-04-05] MEDS: ceFAZolin SODIUM 1 GM in D5W 50 ML IV SCH ×2 (14:42→23:12)
[2022-04-05] MEDS: GABAPENTIN 100 MG CAPSULE PO SCH ×2 (14:45→23:11)
[2022-04-05] MEDS: HYDROcodone/ACETAMIN 5-325 MG TAB (NORCO/ VICODIN) PO PRN ×2 (14:45→23:34)
[2022-04-05 16:14] VITALS: BP_SYST 91
[2022-04-06] MEDS: ceFAZolin SODIUM 1 GM in D5W 50 ML IV SCH ×3 (06:50→22:49)
[2022-04-06 07:17] LABS: PROTHROMBIN TIME 10.6 SECS (9.5-12.5)
[2022-04-06 07:35] LABS: BASOPHILS # (AUTO) 0.1 K/uL (0.0-0.2); EOSINOPHILS # (AUTO) 0.2 K/uL (0.0-0.4); EOSINOPHILS % (AUTO) 3.9 % (0.0-4.0); HEMATOCRIT 42.9 % (36-54); HEMOGLOBIN 14.1 g/dL (14.0-18.0); LYMPHOCYTES # (AUTO) 1.2 K/uL (1.0-5.5); LYMPHOCYTES % (AUTO) 20.7 % (20.5-51.5); MEAN CORPUSCULAR HEMOGLOBIN 30 pg (27-31); MEAN CORPUSCULAR HGB CONC 33 % (32-36); MEAN CORPUSCULAR VOLUME 90 fL (79.0-98.0); MONOCYTES # (AUTO) 0.6 K/uL (0.0-1.0); MONOCYTES % (AUTO) 10.4 % (1.7-9.3); NEUTROPHILS # (AUTO) 3.6 K/uL (1.8-7.7); PLATELET COUNT (AUTO) 140 K/uL (130-430); RED BLOOD CELL COUNT(AUTO) 4.79 MIL/uL (4.2-6.2); RED CELL DISTRIBUTION WIDTH 16.1 % (9.0-15.0); WHITE BLOOD COUNT (AUTO) 5.6 K/uL (4.8-10.8)
[2022-04-06 07:37] LABS: ALBUMIN 3.2 g/dL (3.4-4.8); CALCIUM 8.8 mg/dL (8.4-11.0); CREATININE 1.23 mg/dL (0.55-1.30); TOTAL BILIRUBIN 1.1 mg/dL (0.0-1.0)
[2022-04-06 08:09] VITALS: BP_SYST 119
[2022-04-06] MEDS: POTASSIUM CHLORIDE 20 MEQ TAB.PRT.SR PO SCH (09:18)
[2022-04-06] MEDS: FUROSEMIDE 40 MG/4 ML VIAL IVP SCH ×2 (09:18→20:48)
[2022-04-06] MEDS: ATORVASTATIN 20 MG TABLET PO SCH (09:19)
[2022-04-06] MEDS: PANTOPRAZOLE SODIUM 40 MG TAB PO SCH ×2 (09:20→20:48)
[2022-04-06] MEDS: GABAPENTIN 100 MG CAPSULE PO SCH ×3 (09:20→20:48)
[2022-04-06] MEDS: LOSARTAN POTASSIUM 50 MG TABLET (COZAAR) PO SCH (09:20)
[2022-04-06] MEDS: CARVEDILOL 3.125 MG TABLET (COREG) PO SCH ×2 (09:21→20:49)
[2022-04-06] MEDS: AMIODARONE HCL 200 MG TABLET PO SCH (09:25)
[2022-04-06] MEDS: HYDROcodone/ACETAMIN 5-325 MG TAB (NORCO/ VICODIN) PO PRN (09:25)
[2022-04-06] MEDS: ENOXAPARIN SODIUM 30 MG/0.3 ML SYRINGE SUBCUT SCH (09:27)
[2022-04-06 12:01] VITALS: BP_SYST 119
[2022-04-06] MEDS ORDERED: NALOXONE HCL 0.4 MG/ML AMP (NARCAN) IVP PRN (12:15)
[2022-04-06] MEDS: HYDROcodone/ACETAMIN 10-325 MG TAB PO PRN ×2 (15:09→22:50)
[2022-04-06 15:52] VITALS: BP_SYST 105
--- NOTE | 2022-04-06 18:22 | NUR ---
pt has been stable the whole shift, given pain meds prn, seen by dr dunne, pain med adjusted. pt have good pain relief after the last dose given. will endorse to night nurse.
[2022-04-06 20:00] VITALS: BP_SYST 118
[2022-04-07] VITALS: BP_SYST 116
[2022-04-07] MEDS: ceFAZolin SODIUM 1 GM in D5W 50 ML IV SCH ×3 (05:06→21:37)
[2022-04-07 06:58] LABS: CALCIUM 8.4 mg/dL (8.4-11.0); CREATININE 1.34 mg/dL (0.55-1.30); POTASSIUM 4.1 mmol/L (3.5-5.1)
[2022-04-07 07:18] LABS: BASOPHILS % (AUTO) 0.5 % (0.0-2.0); EOSINOPHILS # (AUTO) 0.2 K/uL (0.0-0.4); EOSINOPHILS % (AUTO) 3.5 % (0.0-4.0); HEMOGLOBIN 14.2 g/dL (14.0-18.0); LYMPHOCYTES # (AUTO) 1.5 K/uL (1.0-5.5); MEAN CORPUSCULAR HEMOGLOBIN 30 pg (27-31); MEAN CORPUSCULAR HGB CONC 33 % (32-36); MEAN CORPUSCULAR VOLUME 90 fL (79.0-98.0); MONOCYTES # (AUTO) 0.6 K/uL (0.0-1.0); MONOCYTES % (AUTO) 9.9 % (1.7-9.3); NEUTROPHILS # (AUTO) 3.5 K/uL (1.8-7.7); NEUTROPHILS % (AUTO) 60.1 % (40.0-70.0); PLATELET COUNT (AUTO) 155 K/uL (130-430); RED BLOOD CELL COUNT(AUTO) 4.79 MIL/uL (4.2-6.2); RED CELL DISTRIBUTION WIDTH 16.4 % (9.0-15.0); WHITE BLOOD COUNT (AUTO) 5.8 K/uL (4.8-10.8)
[2022-04-07 08:00] VITALS: BP_SYST 109
[2022-04-07] MEDS: ENOXAPARIN SODIUM 30 MG/0.3 ML SYRINGE SUBCUT SCH (08:43)
[2022-04-07] MEDS: FUROSEMIDE 40 MG/4 ML VIAL IVP SCH ×2 (08:44→21:00)
[2022-04-07] MEDS: LOSARTAN POTASSIUM 50 MG TABLET (COZAAR) PO SCH (08:45)
[2022-04-07] MEDS: PANTOPRAZOLE SODIUM 40 MG TAB PO SCH ×2 (08:45→21:31)
[2022-04-07] MEDS: CARVEDILOL 3.125 MG TABLET (COREG) PO SCH ×2 (08:45→21:00)
[2022-04-07] MEDS: POTASSIUM CHLORIDE 20 MEQ TAB.PRT.SR PO SCH (08:45)
[2022-04-07] MEDS: ATORVASTATIN 20 MG TABLET PO SCH (08:45)
[2022-04-07] MEDS: AMIODARONE HCL 200 MG TABLET PO SCH (08:46)
[2022-04-07] MEDS: GABAPENTIN 100 MG CAPSULE PO SCH ×3 (08:46→21:31)
[2022-04-07] MEDS: HYDROcodone/ACETAMIN 10-325 MG TAB PO PRN ×3 (08:50→21:37)
[2022-04-07 12:00] VITALS: BP_SYST 102
--- NOTE | 2022-04-07 12:58 | NUR ---
RECEIVED REPORT FROM STEPH MONROY RN, FOR PT CONTINUITY OF CARE. PT IS A/A/O X4, NO DISTRESS NOTED. EATING LUNCH AT THIS TIME. WILL MONITOR PT CLOSELY.
[2022-04-07 16:00] VITALS: BP_SYST 99
--- NOTE | 2022-04-07 18:42 | NUR ---
CLOSING NOTE PT WAS STABLE THROUGHOUT THE DAY. NO DISTRESS NOTED. PT AMBULATED TO BATHROOM UP WITH HIS CANE. ALL CARE NEEDS MET DURING THE SHIFT. FALL/SAFETY PRECAUTIONS IN PLACE. WILL ENDORSE CARE TO PM NURSE.
--- NOTE | 2022-04-07 21:08 | NUR ---
RECEIVED PT SITTING AT EDGE OF BED, NO DISTRESS NOTED, DENIES PAIN. O2 2.5 L O2 SAT 99%. SALINE LOCK TO RT HAND SITE CDI. EDEMA TO BLE. Addendum: 04/07/22 at 2146 by [employer] porcelain waxer 2145: PT BP IS LOW HELD BP MED AND LASIX. WILL REEVALUATE IN AN HOUR
[2022-04-07 21:27] VITALS: BP_SYST 90
[2022-04-08 01:00] VITALS: BP_SYST 123
[2022-04-08] MEDS: ceFAZolin SODIUM 1 GM in D5W 50 ML IV SCH ×2 (05:13→14:45)
[2022-04-08] MEDS: HYDROcodone/ACETAMIN 10-325 MG TAB PO PRN ×3 (05:54→17:58)
[2022-04-08 07:57] VITALS: BP_SYST 103
--- NOTE | 2022-04-08 07:57 | NUR ---
INITIAL ROUNDS Received pt AAOx4, no s/s resp distress, noted pt did get sob when he came back from ambulating to the bathroom, encouraged deep breathing. No c/o pain or discomfort. Plan of care for the day reviewed with pt-pt verbalized his understanding. Pain management, disease process, skin and safety discussed-teach back done. Side rails up x3, pt does not want bed alarm on-he uses cane to go to bathroom. Call light within reach.
[2022-04-08] MEDS ORDERED: FUROSEMIDE 40 MG TABLET PO SCH (09:00)
[2022-04-08] MEDS: PANTOPRAZOLE SODIUM 40 MG TAB PO SCH (09:36)
[2022-04-08] MEDS: AMIODARONE HCL 200 MG TABLET PO SCH (09:36)
[2022-04-08] MEDS: CARVEDILOL 3.125 MG TABLET (COREG) PO SCH (09:37)
[2022-04-08] MEDS: LOSARTAN POTASSIUM 50 MG TABLET (COZAAR) PO SCH (09:37)
[2022-04-08] MEDS: GABAPENTIN 100 MG CAPSULE PO SCH (09:37)
[2022-04-08] MEDS: POTASSIUM CHLORIDE 20 MEQ TAB.PRT.SR PO SCH (09:37)
[2022-04-08] MEDS: ENOXAPARIN SODIUM 30 MG/0.3 ML SYRINGE SUBCUT SCH (09:38)
[2022-04-08] MEDS: ATORVASTATIN 20 MG TABLET PO SCH (09:44)
--- NOTE | 2022-04-08 12:37 | NUR ---
Discharge Planning: VTP faxed pt referral to [facility] [phone] DCP to follow up Addendum: 04/08/22 at 1245 by Laura PERKINS DCP cancelled referral to [facility] [phone], TIMMY was informed pt already has a existing home health service. CM will speak to patient for information.
--- NOTE | 2022-04-08 14:14 | NUR ---
Dietitian Recommendations Continue consistent-CCHO and cardiac diet at home Continue home meetings with RDN Refer to nutrition assessment for details Rianna Sky, MPH, RDN
[2022-04-08] MEDS ORDERED: GABAPENTIN 300 MG CAPSULE PO SCH (15:00)
[2022-04-08 15:30] VITALS: BP_SYST 131
[2022-04-08 16:41] VITALS: BP_SYST 131
--- NOTE | 2022-04-08 19:30 | NUR ---
PATIENT DISCHARGED/CHF APPOINTMENT Patient declined offer to make follow up appointment-he stated he will make his own appointment. Pt had an ECHO done on 05/26/2021 with EF 60%. Pt discharged with home med of Coreg 3.125 mg po BID. Patient given medication reconciliation form and D/C instructions. Exit Care on CHf, Cellulitis, Doxycycline and [place] explained and provided. Patient verbalized his understanding. MD discussed with patient the results and treatment provided. Ambulatory with steady gait using his cane for discharge to home. Patient in stable condition, ID band removed. IV catheter removed, intact and dressing applied, no active bleeding. Rx of Doxycycline and [place] given. Patient educated on pain management. All belongings sent with patient. Patient left floor via wheelchair to private vehicle in no distress.
--- NOTE | 2022-04-09 08:24 | NUR ---
Disposition code 01 dc home and to f/u with dr. Moore in 2 weeks.
--- NOTE | 2022-04-09 11:12 | NUR ---
Discharge Planning: DCP faxed [facility]#[phone] P#[phone] DCP spoke to Marjorie will see patient. Addendum: 04/09/22 at 1501 by Kira Palmer RN Per Tosha at [facility] # [phone]. Stated the pt is under their care , the clinic send out nurse practitioner once a month for f/u care. She will give recommendation should the pt needs PT. The pt is to call his PCP for the homehealth/PT order. Tosha aware the pt was dc home without HH/PT. The pt is able to ambulate 200 feet and stable.
== END 2022-04-08 20:01 | disposition home or self-care (01) | DRG 603 ==
LOC: SED 21:32 → STU 04-05 04:02
PROVIDERS: ADMIT Family Medicine; ATTEND Family Medicine
DX: L03.311 Cellulitis of abdominal wall (principal); J96.10 Chronic respiratory failure, unspecified whether with hypoxia or hypercapnia; I13.0 Hypertensive heart and chronic kidney disease with heart failure and stage 1 through stage 4 chronic kidney disease, or unspecified chronic kidney disease; Z68.43 Body mass index [BMI] 50.0-59.9, adult; Z20.822 Contact with and (suspected) exposure to COVID-19; E66.01 Morbid (severe) obesity due to excess calories; E11.22 Type 2 diabetes mellitus with diabetic chronic kidney disease; N18.9 Chronic kidney disease, unspecified; I50.9 Heart failure, unspecified; G47.33 Obstructive sleep apnea (adult) (pediatric); I27.81 Cor pulmonale (chronic); E11.51 Type 2 diabetes mellitus with diabetic peripheral angiopathy without gangrene; N49.2 Inflammatory disorders of scrotum; Z98.84 Bariatric surgery status
CPT/HCPCS: 36415; 71045; 76376; 80048; 80053; 82962; 83036; 83605; 83690; 83880; 84439; 84443; 84484; 85025; 85610-TC; 93005; 93923; 93970; 96365; 96366; 96375; 99285; G0378; J0690; J1650; J1940; J2543; J3370; J7060

== ENCOUNTER 2022-12-11 05:58 | Emergency (ER) | payer BC, MEDICAID ==
[~2022-12-11] VITALS: Ht 177.8 cm; Wt 191.9 kg
[~2022-12-11 05:58] MED LIST changes: +AMIO200T66 PO; +CARV3.1246 PO; -CLIN-142 PO; +DAPA10TA PO; -DIF100 PO; +FURO-149 PO; -GLUXR500 PO; -LEVO750T45 PO; +LIP20 PO; +LOSA50TA28 PO; -NYST15PO2 TP; +POTA-197 PO; +SEMA0.25 SQ; -SUCR1TAB78 PO; -TRAM100T34 PO
[2022-12-11 06:15] VITALS: BP_SYST 129
--- NOTE | 2022-12-11 06:16 | NUR ---
Patient triaged and placed in bed 4. VSS and patient appears in no acute distress at this time. Accompanied by . notified of need for MSE.
--- NOTE | 2022-12-11 06:17 | NUR ---
Patient placed in ED bed 4 and connected to monitor. Report given to TIFFANY Tenorio, assuming care of patient at this time.
--- NOTE | 2022-12-11 06:44 | NUR ---
pt wears 3L o2 NC at home. pt has bilat lower extrem edema with redness. left knee bruising from fall at home.
[2022-12-11 06:47] LABS: BASOPHILS # (AUTO) 0.1 K/uL (0.0-0.2); BASOPHILS % (AUTO) 1.3 % (0.0-2.0); EOSINOPHILS # (AUTO) 0.2 K/uL (0.0-0.4); EOSINOPHILS % (AUTO) 2.9 % (0.0-4.0); HEMATOCRIT 43.3 % (36-54); HEMOGLOBIN 14.4 g/dL (14.0-18.0); LYMPHOCYTES # (AUTO) 1.6 K/uL (1.0-5.5); LYMPHOCYTES % (AUTO) 26.1 % (20.5-51.5); MEAN CORPUSCULAR HEMOGLOBIN 32 pg (27-31); MEAN CORPUSCULAR HGB CONC 33 % (32-36); MEAN CORPUSCULAR VOLUME 96 fL (79.0-98.0); MONOCYTES # (AUTO) 0.7 K/uL (0.0-1.0); MONOCYTES % (AUTO) 11.8 % (1.7-9.3); NEUTROPHILS # (AUTO) 3.5 K/uL (1.8-7.7); NEUTROPHILS % (AUTO) 57.9 % (40.0-70.0); PLATELET COUNT (AUTO) 155 K/uL (130-430); RED CELL DISTRIBUTION WIDTH 16.5 % (9.0-15.0)
[2022-12-11 07:03] LABS: INR 1.2 (0.80-1.20); PROTHROMBIN TIME 11.8 SECS (9.5-12.5)
[2022-12-11 07:06] LABS: CREATININE 1.49 mg/dL (0.55-1.30); GFR AFRICAN AMERICAN 63 mL/min (>90); GLUCOSE 82 mg/dL (70-99); UREA NITROGEN, BLOOD 22 mg/dL (8-21)
[2022-12-11 07:13] LABS: ALANINE AMINOTRANSFERASE 25 U/L (12-78); ALBUMIN 3.6 g/dL (3.4-4.8); ASPARTATE AMINOTRANSFERASE 41 U/L (10-37); C-REACTIVE PROTEIN QUANT 0.8 mg/dL (0-0.5); TOTAL BILIRUBIN 1.1 mg/dL (0.0-1.0)
[2022-12-11 07:23] LABS: CHLORIDE 95 mmol/L (98-107)
[2022-12-11 07:25] LABS: ANION GAP < 3 (5-15)
--- NOTE | 2022-12-11 10:00 | NUR ---
KNEE IMMOBILIZER GIVEN TO PT.
[2022-12-11 10:01] VITALS: BP_SYST 115
--- NOTE | 2022-12-11 10:03 | NUR ---
Patient given written and verbal discharge instructions and verbalizes understanding. ER MD DR BAPTISTE discussed with patient the results and treatment provided. Patient in stable condition. ID arm band removed. IV catheter removed intact and dressing applied, no active bleeding. Patient educated on pain management and to follow up with PMD. Pain Scale 5/10. Opportunity for questions provided and answered. Medication side effect fact sheet provided.
== END 2022-12-11 10:03 | disposition home or self-care (01) ==
LOC: SED 05:58
DX: S83.92XA Sprain of unspecified site of left knee, initial encounter (principal); E11.9 Type 2 diabetes mellitus without complications; Z79.899 Other long term (current) drug therapy; W19.XXXA Unspecified fall, initial encounter; Y93.89 Activity, other specified; Y92.89 Other specified places as the place of occurrence of the external cause; Y99.8 Other external cause status
CPT/HCPCS: 36415; 73700-TC; 76376; 80053; 83605; 85025; 85610-TC; 85730-TC; 86140; 99284

== ENCOUNTER 2023-02-05 15:30 | Emergency (ER) | payer BC, MEDICAID ==
[~2023-02-05] VITALS: Ht 177.8 cm; Wt 186.0 kg
[2023-02-05 15:47] VITALS: BP_SYST 119
--- NOTE | 2023-02-05 16:00 | NUR ---
PT BIB FROME HOME C/O SOB AND MULTIPLE FALLS AND RAUL EDEMA ON LOWER EXTREMITIES. PT SAT 97 ON 2L NC. PT STATES PAIN IN HEAD BACK AND KNEES. PT STATES INCREASING FORGETFULLNESS. PT STATES HX OF BENIGN BRAIN TUMOR. NKA. PT RESTING IN BED WITH RAILS UP VSS BEDSIDE
--- NOTE | 2023-02-05 16:50 | NUR ---
ER at bedside examining patient.
[2023-02-05 16:51] LABS: BASOPHILS # (AUTO) 0.1 K/uL (0.0-0.2); EOSINOPHILS # (AUTO) 0.1 K/uL (0.0-0.4); EOSINOPHILS % (AUTO) 1.3 % (0.0-4.0); HEMATOCRIT 44.7 % (36-54); HEMOGLOBIN 14.5 g/dL (14.0-18.0); LYMPHOCYTES # (AUTO) 1.2 K/uL (1.0-5.5); LYMPHOCYTES % (AUTO) 19.6 % (20.5-51.5); MEAN CORPUSCULAR HEMOGLOBIN 31 pg (27-31); MEAN CORPUSCULAR HGB CONC 33 % (32-36); MEAN CORPUSCULAR VOLUME 94 fL (79.0-98.0); MONOCYTES # (AUTO) 0.8 K/uL (0.0-1.0); MONOCYTES % (AUTO) 13.5 % (1.7-9.3); NEUTROPHILS % (AUTO) 64.6 % (40.0-70.0); PLATELET COUNT (AUTO) 142 K/uL (130-430); RED BLOOD CELL COUNT(AUTO) 4.75 MIL/uL (4.2-6.2); RED CELL DISTRIBUTION WIDTH 16.9 % (9.0-15.0); WHITE BLOOD COUNT (AUTO) 6.2 K/uL (4.8-10.8)
[2023-02-05 17:09] LABS: ALANINE AMINOTRANSFERASE 13 U/L (12-78); ALBUMIN 3.3 g/dL (3.4-4.8); ASPARTATE AMINOTRANSFERASE 33 U/L (10-37); CALCIUM 8.4 mg/dL (8.4-11.0); CHLORIDE 100 mmol/L (98-107); CREATININE 1.42 mg/dL (0.55-1.30); GFR AFRICAN AMERICAN 67 mL/min (>90); GLUCOSE 110 mg/dL (70-99); TOTAL BILIRUBIN 1.4 mg/dL (0.0-1.0); UREA NITROGEN, BLOOD 18 mg/dL (8-21)
[2023-02-05 17:10] LABS: ACETONE, SERUM NEGATIVE (NEGATIVE)
[2023-02-05 17:15] LABS: ANION GAP < 3 (5-15)
[2023-02-05 17:19] LABS: INR 1.4 (0.80-1.20)
[2023-02-05 17:38] LABS: FREE T4 (FREE THYROXINE) 0.9 ng/dL (0.6-1.6); THYROID STIMULATING HORMONE 0.82 uIu/mL (0.34-4.82)
[2023-02-05 17:52] LABS: BILIRUBIN,URINE NEGATIVE (NEGATIVE); BLOOD, URINE NEGATIVE (NEGATIVE); CLARITY/URINE CLEAR (CLEAR); COLOR,URINE YELLOW (YELLOW); GLUCOSE,URINE 2+ (NEGATIVE); KETONES,URINE NEGATIVE (NEGATIVE); LEUKOCYTE ESTERASE ,URINE NEGATIVE (NEGATIVE); NITRITE, URINE NEGATIVE (NEGATIVE); PROTEIN URINE 2+ (NEGATIVE)
[2023-02-05] MEDS ORDERED: HYDR-3917 PO (17:58)
--- NOTE | 2023-02-05 18:05 | NUR ---
PT BACK FROM C/T RESTING COMFORTABLY IN BED BEDSIDE VSS.
[2023-02-05] MEDS ORDERED: HYDROcodone/ACETAMIN 10-325 MG TAB PO ONE (18:15)
[2023-02-05 18:31] LABS: BACTERIA,URINE FEW /HPF (None Seen); RBC,URINE 0-3 /HPF (0-3); WBC,URINE 0-3 /HPF (0-3)
[2023-02-05 18:32] LABS: HYALINE CASTS, URINE 0-10 /LPF (None Seen); MUCUS,URINE 2+ /LPF (None Seen)
[2023-02-05 18:33] LABS: COARSE GRANULAR CASTS,URINE 0-10 /LPF (None Seen)
[2023-02-05 19:33] VITALS: BP_SYST 119
--- NOTE | 2023-02-05 19:35 | NUR ---
Patient given written and verbal discharge instructions and verbalizes understanding. ER MD discussed with patient the results and treatment provided. Patient in stable condition. ID arm band removed. Rx of Gary given. Patient educated on pain management and to follow up with PMD. Pain Scale 3/10 Opportunity for questions provided and answered. Medication side effect fact sheet provided.
== END 2023-02-05 19:33 | disposition home or self-care (01) ==
LOC: SED 15:30
DX: R53.1 Weakness (principal); M25.561 Pain in right knee; M25.562 Pain in left knee; E11.9 Type 2 diabetes mellitus without complications; Z79.899 Other long term (current) drug therapy
CPT/HCPCS: 36415; 70450-TC; 71045; 73560-TC; 76376; 80053; 81000; 82009; 82550; 83605; 83880; 84439; 84443; 84484; 85025; 85610-TC; 85730-TC; 93005; 99285

== ENCOUNTER 2023-06-05 12:03 | Inpatient (IN) | payer BC, MEDICAID ==
[~2023-06-05] VITALS: Ht 177.8 cm; Wt 181.6 kg
[~2023-06-05 12:03] MED LIST changes: +HYDR-3917 PO
[2023-06-05 12:51] VITALS: BP_SYST 127; PULSE 96; RESP 20; TEMP 97.1; O2SAT 98
[2023-06-05 14:09] LABS: BASOPHILS # (AUTO) 0.1 K/uL (0.0-0.2); EOSINOPHILS # (AUTO) 0.3 K/uL (0.0-0.4); EOSINOPHILS % (AUTO) 4.6 % (0.0-4.0); HEMATOCRIT 43.2 % (36-54); HEMOGLOBIN 14.2 g/dL (14.0-18.0); LYMPHOCYTES # (AUTO) 1.5 K/uL (1.0-5.5); LYMPHOCYTES % (AUTO) 22.1 % (20.5-51.5); MEAN CORPUSCULAR HEMOGLOBIN 31 pg (27-31); MEAN CORPUSCULAR HGB CONC 33 % (32-36); MEAN CORPUSCULAR VOLUME 95 fL (79.0-98.0); MONOCYTES # (AUTO) 0.8 K/uL (0.0-1.0); MONOCYTES % (AUTO) 11.4 % (1.7-9.3); NEUTROPHILS # (AUTO) 4.1 K/uL (1.8-7.7); NEUTROPHILS % (AUTO) 60.9 % (40.0-70.0); PLATELET COUNT (AUTO) 173 K/uL (130-430); RED BLOOD CELL COUNT(AUTO) 4.53 MIL/uL (4.2-6.2); RED CELL DISTRIBUTION WIDTH 16.5 % (9.0-15.0); WHITE BLOOD COUNT (AUTO) 6.8 K/uL (4.8-10.8)
[2023-06-05] MEDS ORDERED: ONDANSETRON 4 MG ODT TAB PO ONE (14:15)
[2023-06-05] MEDS ORDERED: MORPHINE 4 MG INJ. 4 MG/ML VIAL IM ONE (14:15)
[2023-06-05] MEDS ORDERED: GABAPENTIN 300 MG CAPSULE PO ONE (14:15)
[2023-06-05 14:22] LABS: ANION GAP 3 (5-15); CALCIUM 8.5 mg/dL (8.4-11.0); CARBON DIOXIDE 38 mmol/L (23-29); CHLORIDE 100 mmol/L (98-107); CREATININE 1.85 mg/dL (0.55-1.30); GFR AFRICAN AMERICAN 49 mL/min (>90); GLUCOSE 79 mg/dL (74-106); POTASSIUM 4.5 mmol/L (3.5-5.1); SODIUM SERUM 141 mmol/L (136-145); UREA NITROGEN, BLOOD 22 mg/dL (8-21)
[2023-06-05 14:25] LABS: GFR NON AFRICAN-AMERICAN 41 mL/min (>90)
[2023-06-05 14:29] LABS: ALANINE AMINOTRANSFERASE 20 U/L (12-78); ALBUMIN 3.8 g/dL (3.4-4.8); ASPARTATE AMINOTRANSFERASE 28 U/L (10-37); CREATINE KINASE, TOTAL 156 U/L (39-308); TOTAL BILIRUBIN 1.1 mg/dL (0.0-1.0); TOTAL PROTEIN, SERUM 6.7 g/dL (6.4-8.3)
[2023-06-05 14:34] LABS: INR 1.1 (0.80-1.20); PROTHROMBIN TIME 11.6 SECS (9.5-12.5)
[2023-06-05] MEDS ORDERED: NS 500 ML IV ONE (16:30)
[2023-06-05] MEDS ORDERED: HYDROcodone/ACETAMIN 5-325 MG TAB (NORCO/ VICODIN) PO PRN (19:45)
[2023-06-05 21:15] VITALS: BP_SYST 131; PULSE 98; RESP 20; TEMP 97.4; O2SAT 98
[2023-06-05] MEDS: 0.45% NACL 1,000 ML IV SCH (22:44)
[2023-06-06 01:15] VITALS: BP_SYST 104; PULSE 94; RESP 16; TEMP 96.6; O2SAT 100
[2023-06-06] MEDS: 0.45% NACL 1,000 ML IV SCH ×3 (05:37→22:05)
[2023-06-06 06:20] LABS: BASOPHILS # (AUTO) 0.1 K/uL (0.0-0.2); BASOPHILS % (AUTO) 0.9 % (0.0-2.0); EOSINOPHILS # (AUTO) 0.3 K/uL (0.0-0.4); EOSINOPHILS % (AUTO) 4.8 % (0.0-4.0); HEMATOCRIT 42.4 % (36-54); HEMOGLOBIN 13.7 g/dL (14.0-18.0); LYMPHOCYTES # (AUTO) 1.8 K/uL (1.0-5.5); LYMPHOCYTES % (AUTO) 30.1 % (20.5-51.5); MEAN CORPUSCULAR HEMOGLOBIN 31 pg (27-31); MEAN CORPUSCULAR HGB CONC 32 % (32-36); MEAN CORPUSCULAR VOLUME 96 fL (79.0-98.0); MONOCYTES # (AUTO) 0.7 K/uL (0.0-1.0); MONOCYTES % (AUTO) 11.5 % (1.7-9.3); NEUTROPHILS # (AUTO) 3.2 K/uL (1.8-7.7); NEUTROPHILS % (AUTO) 52.7 % (40.0-70.0); PLATELET COUNT (AUTO) 163 K/uL (130-430); RED BLOOD CELL COUNT(AUTO) 4.42 MIL/uL (4.2-6.2); RED CELL DISTRIBUTION WIDTH 16.8 % (9.0-15.0); WHITE BLOOD COUNT (AUTO) 6.1 K/uL (4.8-10.8)
[2023-06-06 06:46] LABS: ALBUMIN 3.6 g/dL (3.4-4.8); CALCIUM 8.2 mg/dL (8.4-11.0); CREATININE 1.65 mg/dL (0.55-1.30); POTASSIUM 4.6 mmol/L (3.5-5.1); TOTAL BILIRUBIN 1.3 mg/dL (0.0-1.0); TOTAL PROTEIN, SERUM 6.3 g/dL (6.4-8.3)
[2023-06-06 08:00] VITALS: BP_SYST 138; PULSE 96; RESP 16; TEMP 96.9; O2SAT 96; O2SAT 99
[2023-06-06] MEDS ORDERED: NALOXONE HCL 0.4 MG/ML AMP (NARCAN) IVP PRN ×2 (08:45→17:45)
[2023-06-06] MEDS: GABAPENTIN 300 MG CAPSULE PO SCH ×3 (09:23→20:22)
[2023-06-06] MEDS: HYDROcodone/ACETAMIN 5-325 MG TAB (NORCO/ VICODIN) PO PRN ×2 (09:23→16:41)
[2023-06-06] MEDS: CARVEDILOL 3.125 MG TABLET (COREG) PO SCH ×2 (09:24→20:22)
[2023-06-06] MEDS: ATORVASTATIN 20 MG TABLET PO SCH (09:24)
[2023-06-06] MEDS: PANTOPRAZOLE SODIUM 40 MG TAB PO SCH ×2 (09:25→20:22)
[2023-06-06] MEDS: LOSARTAN POTASSIUM 50 MG TABLET (COZAAR) PO SCH (09:25)
[2023-06-06] MEDS: FUROSEMIDE 40 MG/4 ML VIAL IVP SCH (10:05)
[2023-06-06 10:39] LABS: BILIRUBIN,URINE NEGATIVE (NEGATIVE); CLARITY/URINE CLEAR (CLEAR); COLOR,URINE YELLOW (YELLOW); GLUCOSE,URINE 1+ (NEGATIVE); KETONES,URINE NEGATIVE (NEGATIVE); PH,URINE 5.5 (5.0-8.0); PROTEIN URINE NEGATIVE (NEGATIVE)
[2023-06-06 10:40] LABS: BLOOD, URINE NEGATIVE (NEGATIVE); LEUKOCYTE ESTERASE ,URINE NEGATIVE (NEGATIVE); NITRITE, URINE NEGATIVE (NEGATIVE); UROBILINOGEN,URINE 0.2 (0.2-1.0)
[2023-06-06 17:27] VITALS: BP_SYST 136; PULSE 92; RESP 16; TEMP 97.7; O2SAT 96
[2023-06-06] MEDS: INSULIN REGULAR, HUMAN 100 UNITS/ML, 3 ML VIAL (humuLIN R) SUBCUT PRN (19:13)
[2023-06-06 19:48] VITALS: BP_SYST 112; PULSE 94; RESP 18; TEMP 96.6; O2SAT 99
[2023-06-06] MEDS: MORPHINE 2 MG/ML INJ. SYRINGE IVP PRN (20:23)
[2023-06-07] VITALS: BP_SYST 116; PULSE 92; RESP 18; TEMP 98.1; O2SAT 100
[2023-06-07] MEDS: MORPHINE 2 MG/ML INJ. SYRINGE IVP PRN ×4 (01:37→22:20)
[2023-06-07 07:17] LABS: BASOPHILS % (AUTO) 0.9 % (0.0-2.0); EOSINOPHILS # (AUTO) 0.3 K/uL (0.0-0.4); EOSINOPHILS % (AUTO) 5.7 % (0.0-4.0); HEMATOCRIT 42.3 % (36-54); HEMOGLOBIN 13.6 g/dL (14.0-18.0); LYMPHOCYTES # (AUTO) 1.6 K/uL (1.0-5.5); LYMPHOCYTES % (AUTO) 28.4 % (20.5-51.5); MEAN CORPUSCULAR HEMOGLOBIN 31 pg (27-31); MEAN CORPUSCULAR HGB CONC 32 % (32-36); MEAN CORPUSCULAR VOLUME 96 fL (79.0-98.0); MONOCYTES # (AUTO) 0.6 K/uL (0.0-1.0); MONOCYTES % (AUTO) 10.3 % (1.7-9.3); NEUTROPHILS # (AUTO) 3.1 K/uL (1.8-7.7); NEUTROPHILS % (AUTO) 54.7 % (40.0-70.0); PLATELET COUNT (AUTO) 159 K/uL (130-430); RED BLOOD CELL COUNT(AUTO) 4.42 MIL/uL (4.2-6.2); RED CELL DISTRIBUTION WIDTH 16.6 % (9.0-15.0); WHITE BLOOD COUNT (AUTO) 5.7 K/uL (4.8-10.8)
[2023-06-07 07:46] LABS: ALBUMIN 3.4 g/dL (3.4-4.8); CALCIUM 8.4 mg/dL (8.4-11.0); CREATININE 1.38 mg/dL (0.55-1.30); PHOSPHORUS 4.6 mg/dL (2.7-4.5); POTASSIUM 4.5 mmol/L (3.5-5.1); THYROID STIMULATING HORMONE 0.97 uIu/mL (0.34-4.82); TOTAL BILIRUBIN 1.2 mg/dL (0.0-1.0); TOTAL PROTEIN, SERUM 6.3 g/dL (6.4-8.3); URIC ACID 4.9 mg/dL (2.4-7.0)
[2023-06-07 07:49] VITALS: BP_SYST 132; PULSE 96; RESP 16; TEMP 97.6; O2SAT 95
[2023-06-07 08:00] VITALS: BP_SYST 132; PULSE 96; RESP 18; TEMP 97.6; O2SAT 93; O2SAT 94
[2023-06-07] MEDS: LOSARTAN POTASSIUM 50 MG TABLET (COZAAR) PO SCH (09:46)
[2023-06-07] MEDS: GABAPENTIN 300 MG CAPSULE PO SCH ×3 (09:47→20:14)
[2023-06-07] MEDS: ATORVASTATIN 20 MG TABLET PO SCH (09:47)
[2023-06-07] MEDS: PANTOPRAZOLE SODIUM 40 MG TAB PO SCH ×2 (09:47→20:15)
[2023-06-07] MEDS: CARVEDILOL 3.125 MG TABLET (COREG) PO SCH (09:48)
[2023-06-07] MEDS: FUROSEMIDE 40 MG/4 ML VIAL IVP SCH (10:42)
[2023-06-07] MEDS ORDERED: AMIODARONE HCL 200 MG TABLET PO ONE (11:00)
[2023-06-07 12:00] VITALS: BP_SYST 119; PULSE 100; RESP 16; TEMP 97.4; O2SAT 94
[2023-06-07] MEDS ORDERED: SACUBITRIL/VALSARTAN 24 MG-26 MG 1 TABLET PO ONE (12:00)
[2023-06-07] MEDS: HYDROcodone/ACETAMIN 5-325 MG TAB (NORCO/ VICODIN) PO PRN (13:30)
[2023-06-07 16:00] VITALS: BP_SYST 129; PULSE 95; RESP 16; TEMP 97.6; O2SAT 96
[2023-06-07 19:45] VITALS: BP_SYST 124; PULSE 95; RESP 20; TEMP 96.8; O2SAT 99
[2023-06-07] MEDS: SACUBITRIL/VALSARTAN 24 MG-26 MG 1 TABLET PO SCH (20:14)
[2023-06-07] MEDS: CARVEDILOL 6.25 MG TABLET (COREG) PO SCH (20:15)
[2023-06-08 00:07] VITALS: BP_SYST 129; PULSE 94; RESP 18; TEMP 96.6; O2SAT 99
[2023-06-08 05:21] LABS: BASOPHILS % (AUTO) 0.6 % (0.0-2.0); EOSINOPHILS # (AUTO) 0.3 K/uL (0.0-0.4); HEMATOCRIT 44.3 % (36-54); HEMOGLOBIN 14.3 g/dL (14.0-18.0); LYMPHOCYTES # (AUTO) 1.2 K/uL (1.0-5.5); LYMPHOCYTES % (AUTO) 23.1 % (20.5-51.5); MEAN CORPUSCULAR HEMOGLOBIN 31 pg (27-31); MEAN CORPUSCULAR HGB CONC 32 % (32-36); MEAN CORPUSCULAR VOLUME 96 fL (79.0-98.0); MONOCYTES # (AUTO) 0.5 K/uL (0.0-1.0); MONOCYTES % (AUTO) 9.9 % (1.7-9.3); NEUTROPHILS # (AUTO) 3.2 K/uL (1.8-7.7); NEUTROPHILS % (AUTO) 60.4 % (40.0-70.0); PLATELET COUNT (AUTO) 171 K/uL (130-430); RED BLOOD CELL COUNT(AUTO) 4.64 MIL/uL (4.2-6.2); RED CELL DISTRIBUTION WIDTH 16.7 % (9.0-15.0); WHITE BLOOD COUNT (AUTO) 5.3 K/uL (4.8-10.8)
[2023-06-08] MEDS: MORPHINE 2 MG/ML INJ. SYRINGE IVP PRN (05:22)
[2023-06-08 05:49] LABS: ALBUMIN 3.4 g/dL (3.4-4.8); CALCIUM 8.4 mg/dL (8.4-11.0); CREATININE 1.29 mg/dL (0.55-1.30); POTASSIUM 4.3 mmol/L (3.5-5.1); TOTAL BILIRUBIN 1.2 mg/dL (0.0-1.0); TOTAL PROTEIN, SERUM 6.4 g/dL (6.4-8.3)
[2023-06-08 08:00] VITALS: BP_SYST 138; PULSE 95; RESP 16; TEMP 98.6; O2SAT 100; O2SAT 95
[2023-06-08] MEDS: FUROSEMIDE 40 MG/4 ML VIAL IVP SCH (08:41)
[2023-06-08] MEDS: GABAPENTIN 300 MG CAPSULE PO SCH ×2 (08:45→14:18)
[2023-06-08] MEDS: CARVEDILOL 6.25 MG TABLET (COREG) PO SCH (08:46)
[2023-06-08] MEDS: ATORVASTATIN 20 MG TABLET PO SCH (08:47)
[2023-06-08] MEDS: PANTOPRAZOLE SODIUM 40 MG TAB PO SCH (08:47)
[2023-06-08] MEDS: SACUBITRIL/VALSARTAN 24 MG-26 MG 1 TABLET PO SCH (08:49)
[2023-06-08] MEDS ORDERED: CARVEDILOL 12.5 MG TABLET (COREG) PO SCH ×2 (09:00→21:00)
[2023-06-08] MEDS ORDERED: AMIODARONE HCL 200 MG TABLET PO SCH (09:00)
[2023-06-08] MEDS: HYDROcodone/ACETAMIN 7.5-325 MG TAB PO PRN ×2 (11:21→18:27)
[2023-06-08 12:00] VITALS: BP_SYST 125; PULSE 97; RESP 16; TEMP 98.2; O2SAT 96
[2023-06-08] MEDS: INSULIN REGULAR, HUMAN 100 UNITS/ML, 3 ML VIAL (humuLIN R) SUBCUT PRN (13:50)
[2023-06-08] MEDS ORDERED: COR12.5 PO (15:56)
[2023-06-08 16:00] VITALS: BP_SYST 130; PULSE 97; RESP 17; TEMP 98; O2SAT 96
[2023-06-08] MEDS ORDERED: AMOX-423 PO (16:10)
[2023-06-08] MEDS ORDERED: HYDR-3921 PO (16:19)
[2023-06-08] MEDS ORDERED: AMOXICILLIN 500 MG CAPSULE PO ONE (16:30)
== END 2023-06-08 19:10 | disposition home or self-care (01) | DRG 194 ==
LOC: SED 12:03 → STU 20:06
PROVIDERS: ADMIT Internal Medicine; ATTEND Internal Medicine
PROC: 4A00X4Z Measurement of Central Nervous Electrical Activity, External Approach (ICD-10-PCS; principal; 2023-06-06)
DX: I11.0 Hypertensive heart disease with heart failure (principal); N17.0 Acute kidney failure with tubular necrosis; E83.41 Hypermagnesemia; I50.23 Acute on chronic systolic (congestive) heart failure; Z68.43 Body mass index [BMI] 50.0-59.9, adult; E11.40 Type 2 diabetes mellitus with diabetic neuropathy, unspecified; I47.1 Supraventricular tachycardia; E66.01 Morbid (severe) obesity due to excess calories; G89.29 Other chronic pain; G47.33 Obstructive sleep apnea (adult) (pediatric); K21.9 Gastro-esophageal reflux disease without esophagitis; Z98.84 Bariatric surgery status; Z79.85 Long-term (current) use of injectable non-insulin antidiabetic drugs; Z79.899 Other long term (current) drug therapy; R06.89 Other abnormalities of breathing
CPT/HCPCS: 36415; 70450-TC; 71045; 73560-TC; 73590-TC; 76376; 76770; 80048; 80053; 80061; 81003; 82550; 82962; 83735; 83880; 84100; 84443; 84484; 84550; 85025; 85379; 85610-TC; 85730-TC; 93005; 93306; 94010; 94760; 95816; 96360; 96372; 99285; G0378; J1940; J2270; Q0162

== ENCOUNTER 2023-11-05 14:08 | Emergency (ER) | payer MEDICAID ==
[~2023-11-05] VITALS: Ht 177.8 cm; Wt 172.4 kg
[~2023-11-05 14:08] MED LIST changes: +AMOX-423 PO; -CARV3.1246 PO; +COR12.5 PO; -HYDR-3917 PO
[2023-11-05 14:10] VITALS: BP_SYST 138; PULSE 93; RESP 19; TEMP 97.1; O2SAT 98
[2023-11-05] MEDS: MORPHINE 4 MG INJ. 4 MG/ML VIAL IM ONE (16:31)
[2023-11-05] MEDS ORDERED: OXYC-128 PO (18:08)
[2023-11-05 18:47] VITALS: BP_SYST 121; PULSE 80; RESP 20; TEMP 97.5; O2SAT 98
== END 2023-11-05 18:47 | disposition home or self-care (01) ==
LOC: SED 14:08
DX: M54.40 Lumbago with sciatica, unspecified side (principal); E11.9 Type 2 diabetes mellitus without complications; M19.90 Unspecified osteoarthritis, unspecified site; G89.29 Other chronic pain; Z79.899 Other long term (current) drug therapy
CPT/HCPCS: 99285; 72131; 72192; 76376; 96372; J2270